=== PATIENT | male | born 1955 | race Caucasian/White ===

== ENCOUNTER 2025-05-25 08:55 | Outpatient (OUT) | payer MEDICARE, SELFPAY ==
--- OUTSIDE RECORDS SUMMARY | 2025-04-16 05:15 | XMS_ITS ---
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 Name Role Phone Rekha Naila Primary Care Provider [phone] Karie Willoughby Unavailable [phone] REASON FOR VISIT f/u Social History Sex Assigned At : Social History Observation Description Sex Assigned At Male Encounters Encounter Location Date Provider Diagnosis Main [address] [facility] [place] [id number] 04/16/2025 Naila Da Silva Plan Of Treatment Next Appt Details Provider Name:Naila Da Silva , 06/23/2025 08:15:00 AM, [address] [place], [place], [id number], Progress Notes * Bhavin PULLIAM HDOB:[birth year] (70 yo M)Acc No.[id number]:04/16/2025 Medical Note Patient: Teresa MIN Bhavin Weinberg :?Naila Da SilvaDOB:1955???Age:69 Y???Sex: MaleDate:04/16/2025Phone:[phone]:[facility] [place], [id number] Subjective: * Chief Complaints: * 1 . F/u. * Medical History: Objective: * Vitals: Assessment: Plan: * Treatment: * Billing Information: * Visit Code: * Procedure Codes: * Electronic signature of EVANS Lama on 05/25/2025 at 09:04 AM ESTSign off status: Pending * Provider: Luis Daniel Da Silva Date: Generated for Printing/Faxing/eTransmitting on:?05/25/2025 09:04 AM EST
--- OUTSIDE RECORDS SUMMARY | 2025-04-22 05:30 | XMS_ITS ---
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 Role Phone Rekha Naila Primary Care Provider Karie Willoughby Unavailable [phone] REASON FOR VISIT DM2 & HTN Social History Sex Assigned At : Social History Observation Description Sex Assigned At Male Encounters Encounter Location Date Provider Diagnosis Main [address] [place] [id number] 04/22/2025 Naila Rekha Plan Of Treatment Next Appt Details Provider Name:Naila Rekha , 06/23/2025 08:15:00 AM, [address] [place], [place], [id number], Progress Notes * Bhavin PULLIAM HDOB:[birth year] (70 yo M)Acc No.[id number]:04/22/2025 Medical Note Patient: Teresa MIN Bhavin Weinberg :?Naila Da SilvaDOB:1955???Age:69 Y???Sex: MaleDate:04/22/2025Phone:[phone]:[address] [facility] [id number] Subjective: * Chief Complaints: * 1 . DM2 & HTN. * Medical History: Objective: * Vitals: Assessment: Plan: * Treatment: * Billing Information: * Visit Code: * Procedure Codes: * Electronic signature of EVANS Lama on 05/25/2025 at 09:04 AM ESTSign off status: Pending * Provider: Luis Daniel Da Silva Date: Generated for Printing/Faxing/eTransmitting on:?05/25/2025 09:04 AM EST
--- OUTSIDE RECORDS SUMMARY | 2025-05-24 03:00 | XMS_ITS ---
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 Name Role Phone Naila Da Silva Primary Care Provider Karie Willoughby Unavailable [phone] Allergies No Known Allergies Results Component Value Reference Range Notes POCT A1C Reviewed date:05/24/2025 08:17:46 AM Interpretation: Performing Lab: Notes/Report: Result 8.6 0-5.6 % REASON FOR VISIT DM2/ HTN Medications Medication SIG (Take, Route, Frequency, Duration) Notes Start Date End Date Status glipiZIDE 10 MG 1 tablet 30 minutes before breakfast Orally Once a day; Duration: 90 days [id number] Choice Lancets Thin -as directed twice daily; Duration: 30 days 07/20/2024Not-TakingBlood Glucose Test -as directed In Vitro twice daily; Duration: 30 days07/20/2024Not-TakingAlcohol Wipes 70 %as directed Externally twice daily; Duration: 30 days07/20/2024Not-TakingGlucometerUse as directed; Duration: 30 days07/20/2024Not-TakingHumaLOG KwikPen 100 UNIT/MLInject 5U Subcutaneous three times daily with meals; Duration: 30 days5ActiveEasy Touch Pen Vallecito 32G X 6 MMUse to inject insulin 5 times daily; Duration: 90 days5ActiveLantus SoloStar 100 UNIT/MLInject 35U in the morning and evening Subcutaneous Twice a day; Duration: 30 daysDOSE INCREASE 04/21/25Active Diclofenac Sodium 75 MG1 tablet as needed Orally Twice a day; Duration: 30 days [id number] Choice Lancets Thin -Use to check blood sugars twice daily; Duration: 90 daysPLS USE WHAT BRANMD IS COVERED BY PT INS5ActiveBlood Glucose Test -Use to check blood sugars In Vitro twice daily; Duration: 90 days PLS USE WHAT IS COVERED BY PT INS5ActiveGlucometerUse to check blood sugars twice daily; Duration: 90 daysPLS USE WHAT IS COVERED BY INS04/18/2025 ActiveAlcohol Wipes 70 %Use to check blood sugars Externally twice daily; Duration: 90 days5ActivetraZODone HCl 150 MG1 tablet at bedtime as needed Orally Once a day; Duration: 30 days02/24/2025tiveMetoprolol Succinate ER 25 MGTAKE 1 TABLET BY MOUTH ONCE DAILYActiveDexcom G7 Bend Up -Use to check blood sugars; Duration: 90 days5ActiveAtorvastatin Calcium 40 MG1 tablet Orally Once a day; Duration: 90 daysActiveCyclobenzaprine HCl 10 MG1 tablet at bedtime as needed Orally Once a day; Duration: 30 days5Active Aspirin 81 81 MG1 tablet Orally Once a dayActiveGabapentin 600 MG1 tablet Orally Twice daily; Duration: 90 daysActiveDexcom G7 Sensor -Use to check blood sugars and change every 10 days; Duration: 90 days5Active Social History Sex Assigned At : Social History Observation Description Sex Assigned At Male Problems Problem Type SNOMED Code ICD Code Onset Dates Problem Status W/U Status Risk Notes Problem Uncontrolled type 2 diabetes mellitus with hypoglycemia without coma (E11.649) ActiveconfirmedProblemLong-term current use of insulin ([id number])Long-term insulin use (Z79.4)Activeconfirmed Vital Signs Temperature 97.7 degrees Fahrenheit 05/24/20 25 Weight 124 lbs 05/24/2025 Height 67.00 in 05/24/2025 BMI 19.42 kg/m2 05/24/2025 Blood pressure systolic 157 mm Hg 05/24/20 25 Blood pressure diastolic 100 mm Hg 025 Heart Rate 60 /min 05/24/2025 Respiratory Rate 18 /min 05/24/2025 Oximetry 98 % 05/24/2025 Weight-kg 56.25 kg 05/24/2025 Height-cm 170.18 cm 05/24/2025 KimNeilo 025 08:02:43 AM EST > Encounters Encounter Location Date Provider Diagnosis Main [address] , [place] [id number] [facility] ([facility] I 10 ; Uncontrolled type 2 diabetes mellitus with hypoglycemia without coma E11.649 ; DG (acute kidney injury) N17.9 ; Long-term insulin use Z79.4 ; BMI less than 19,adult Z68.1 and Underweight R63.6 Assessments Encounter Date Diagnosis (ICD Code) Assessment Notes Treatment Notes Treatment Clinical Notes Section Notes 05/24/2025 HTN (hypertension) (ICD-10 - I10 ) Pt continues to have elevated BP's in office and home. Pt denies symptoms at this time. Pt encouraged to check BP's twice daily at rest; once in the morning upon waking and once before bed. Pt provided w/ a BP log to keep track of BP's at home. Encouraged healthy diet and exercise. Discussed reassuring vs non reassuring signs related to elevated BP and when to RTC or go to the ER. Pt declines medication change at this time, has not taken his meds today 05/24/2025Uncontrolled type 2 diabetes mellitus with hypoglycemia without coma (ICD-10 - E11.649) A1C elevated above goal, much improved since last visit Pt denies symptoms at this time. Strongly encouraging healthy diet and exercise, if able- lower in carbohydrates and sugars, prioritizing protein, fruits, and vegetables. Recommendations made to continue monitoring home blood sugars, keep a log checking 3x daily; Fasted, and twice 2 hours post-prandial. Continue current medications, refills sent Sent RX for Dexcom d/t pt's Hypoglycemic episodes and insulin use F/U 1 month or PRN 05/24/2025KI (acute kidney injury) (ICD-10 - N17.9)Continue following w/ Nwhzxqdzev54/10/2025Long-term insulin use (ICD-10 - Z79.4)05/24/2025MI less than 19,adult (ICD-10 - Z68.1)05/24/2025Underweight (ICD-10 - R63.6) Plan Of Treatment Medication Medication Name Sig Start Date Stop Date Notes glipiZIDE 10 MG 1 tablet 30 minutes before breakfast Orally Once a day; Duration: 90 days HumaLOG KwikPen 100 UNIT/MLInject 5U Subcutaneous three times daily with meals; Duration: 30 days04/21/2025Easy Touch Pen Vallecito 32G X 6 MMUse to inject insulin 5 times daily; Duration: 90 days10/19/2024Lantus SoloStar 100 UNIT/ML Inject 35U in the morning and evening Subcutaneous Twice a day; Duration: 30 daysDOSE INCREASE 04/21/25Dexcom G7 Bend Up -Use to check blood sugars; Duration: 90 days05/24/2025Dexcom G7 Sensor -Use to check blood sugars and change every 10 days; Duration: 90 days05/24/2025Treatment Notes Assessment Notes HTN (hypertension) Pt continues to have elevated BP's in office and home. Pt denies symptoms at this time. Pt encouraged to check BP's twice daily at rest; once in the morning upon waking and once before bed. Pt provided w/ a BP log to keep track of BP's at home. Encouraged healthy diet and exercise. Discussed reassuring vs non reassuring signs related to elevated BP and when to RTC or go to the ER. Pt declines medication change at this time, has not taken his meds today Uncontrolled type 2 diabetes mellitus with hypoglycemia without coma A1C elevated above goal, much improved since last visit Pt denies symptoms at this time. Strongly encouraging healthy diet and exercise, if able- lower in carbohydrates and sugars, prioritizing protein, fruits, and vegetables. Recommendations made to continue monitoring home blood sugars, keep a log checking 3x daily; Fasted, and twice 2 hours post-prandial. Continue current medications, refills sent Sent RX for Dexcom d/t pt's Hypoglycemic episodes and insulin use F/U 1 month or PRN DG (acute kidney injury) Continue vinh cardona w/ Nephrology Next Appt Details Follow Up: 1 month DM2 & DG , Reason: Provider Name:Naila Da Silva , 06/23/2025 08:15:00 AM, [address] [place], [place], [id number], Progress Notes * Bhavin PULLIAM HDOB:[birth year] (70 yo M)Acc No.[id number]:05/24/2025 Medical Note Patient: Bhavin BARRIGA :?Naila BanksB:1955???Age:70 Y???Sex: MaleDate:05/24/2025Phone:[phone]:[address]Check In:07:49 AM EST Subjective: * Chief Complaints: * D M2/ HTN * HPI: ???Interim History:?DIABETES Last HgA1C: 13.0% (04/21/25), 15% (01/19/25, 10/19/24, 07/20/24) Today's HgA1C: 8.6% Medication: Glipizide 10mg 1QD, Humalog KwikPen 5U TID, Lantus Solostar 35U BID Last visit increased Lantus from 25U to 35U BID, New RX for Humalog TID w/ meals 5U? Pt reports his diet has been about the same, he eats what he wants? Pt reports his neighbors upstairs at his apartment home are so disruptive, he feels that they causehis sugars to be too low Pt reports his sugars have been dropping in thr 40's after checking and this worries him He will be moving out of his apartment in June? HYPERTENSION Medication: Metoprolol ER 25mg 1QD Stopped Losartan-HCTZ last visit d/t recent DG Pt has been having higher BP's at home, has not taken his medications this morning RECENT DG Follows w/ [facility], last appt 04/15/25. * ROS: ???Negative except mentioned above in the HPI. * Medical History: * Surgical History: C abbage 5, : Inpatient, * Hospitalization/Major Diagno stic Procedure: D enies Past Hospitalization * Family History: F ather: . M other: . P aternal Grand Father: . P aternal Grand Mother: . M aternal Grand Father: . M aternal Grand Mother: .? * Medications: T akingLantus SoloStar 100 UNIT/ML Solution Pen-injector Inject 35U in the morning and evening Subcutaneous Twice a day , Notes to Pharmacist: DOSE INCREASE 04/21/25Easy Touch Pen Vallecito 32G X 6 MM Miscellaneous Use to inject insulin 5 times daily HumaLOG KwikPen 100 UNIT/ML Solution Pen-injector Inject 5U Subcutaneous three times daily with meals Aspirin 81 81 MG Tablet Delayed Release 1 tablet Orally Once a day Gabapentin 600 MG Tablet 1 tablet Orally Twice daily glipiZIDE 10 MG Tablet 1 tablet 30 minutes before breakfast Orally Once a day Cyclobenzaprine HCl 10 MG Tablet 1 tablet at bedtime as needed Orally Once a day Atorvastatin Calcium 40 MG Tablet 1 tablet Orally Once a day Metoprolol Succinate ER 25 MG Tablet Extended Release 24 Hour TAKE 1 TABLET BY MOUTH ONCE DAILY traZODone HCl 150 MG Tablet 1 tablet at bedtime as needed Orally Once a day Glucometer Use to check blood sugars twice daily , Notes to Pharmacist: PLS USE WHAT IS COVERED BY INSBlood Glucose Test - Strip Use to check blood sugars In Vitro twice daily , Notes to Pharmacist: PLS USE WHAT IS COVERED BY PT INSAlcohol Wipes 70 % Miscellaneous Use to check blood sugars Externally twice daily 1st Choice Lancets Thin - Miscellaneous Use to check blood sugars twice daily , Notes to Pharmacist: PLS USE WHAT BRANMD IS COVERED BY PT INSDiclofenac Sodium 75 MG Tablet Delayed Release 1 tablet as needed Orally Twice a day Taking Lantus SoloStar 100 UNIT/ML Solution Pen-injector Inject 35U in the morning and evening Subcutaneous Twice a day , Notes to Pharmacist: DOSE INCREASE 04/21/25Taking Easy Touch Pen Vallecito 32G X 6 MM Miscellaneous Use to inject insulin 5 times daily Taking HumaLOG KwikPen 100 UNIT/ML Solution Pen-injector Inject 5U Subcutaneous three times daily with meals Taking Aspirin 81 81 MG Tablet Delayed Release 1 tablet Orally Once a day Taking Gabapentin 600 MG Tablet 1 tablet Orally Twice daily Taking glipiZIDE 10 MG Tablet 1 tablet 30 minutes before breakfast Orally Once a day Taking Cyclobenzaprine HCl 10 MG Tablet 1 tablet at bedtime as needed Orally Once a day Taking Atorvastatin Calcium 40 MG Tablet 1 tablet Orally Once a day Taking Metoprolol Succinate ER 25 MG Tablet Extended Release 24 Hour TAKE 1 TABLET BY MOUTH ONCE DAILY Taking traZODone HCl 150 MG Tablet 1 tablet at bedtime as needed Orally Once a day Taking Glucometer Use to check blood sugars twice daily , Notes to Pharmacist: PLS USE WHAT IS COVERED BY INSTaking Blood Glucose Test - Strip Use to check blood sugars In Vitro twice daily , Notes to Pharmacist: PLS USE WHAT IS COVERED BY PT INSTaking Alcohol Wipes 70 % Miscellaneous Use to check blood sugars Externally twice daily Taking 1st Choice Lancets Thin - Miscellaneous Use to check blood sugars twice daily , Notes to Pharmacist: PLS USE WHAT BRANMD IS COVERED BY PT INSTaking Diclofenac Sodium 75 MG Tablet Delayed Release 1 tablet as needed Orally Twice a day Not-Taking/PRNGlucometer Use as directed Alcohol Wipes 70 % Miscellaneous as directed Externally twice daily Blood Glucose Test - Strip as directed In Vitro twice daily 1st Choice Lancets Thin - Miscellaneous as directed twice daily Medication List reviewed and reconciled with the patientNot-Taking/PRN Glucometer Use as directed Not-Taking/PRN Alcohol Wipes 70 % Miscellaneous as directed Externally twice daily Not-Taking/PRN Blood Glucose Test - Strip as directed In Vitro twice daily Not-Taking/PRN 1st Choice Lancets Thin - Miscellaneous as directed twice daily Medication List reviewed and reconciled with the patient * Allergies: N .K.D.A.no[Allergies Verified] Objective: * Vitals: T emp:97.7F, Wt:124lbs, Ht: 67.00 in, BMI:19.42Index, BP: 165/107 mm Hg,157/100mm Hg, HR:60/min, RR:18/min, Pain scale:31-10, Oxygen sat %:98%, Wt-k.25 kg, Ht- cm: 170.18 cm, Body Surface Area: 1.63. Kofi Kim 05/24/2025 08:02:43 AM EST >. * Examination: ???General Examination: ?General appearance:?alert, pleasant, well-nourished and inno acute distress.?Head:?normocephalic, atraumatic.?Heart:?regular rate and rhythm without murmurs, gallops, clicks or rubs.?Lungs:?clear to auscultation bilaterally, with good air movement and no rales, rhonchi or wheezes.?Psych:?alert and oriented x 3 , cooperative with exam, normal affect / mood , speech is clear and coherent.?CQM Exceptions: ?Currently taking Aspirin:?Aspirin Use:?No??? Assessment: * Assessment: 1.?Uncontrolled type 2 diabetes mellitus with hypoglycemia without coma - E11.649 (Primary) ??2.?HTN (hypertension) - I10???3.?DG (acute kidney injury) -N17.9???4.?Long-term insulin use - Z79.4???5.?BMI less than19,adult - Z68.1???6.?Underweight - R63.6??? Plan: * Treatment: Start Dexcom G7 Sensor Miscellaneous, -, Use to check blood sugars and change every 10 days, 90 days, 9, Refills 1;?Start Dexcom G7 Bend Up Device, -, Use to check blood sugars, 90 days, 1, Refills 0;?Refill Lantus SoloStar Solution Pen- injector, 100 UNIT/ML, Inject 35U in the morning and evening, Subcutaneous, Twice a day, 30 days, 21 Milliliter, Refills 2, Notes to Pharmacist: DOSE INCREASE 04/21/25;?Refill Easy Touch Pen Vallecito Miscellaneous, 32G X 6 MM, Use to inject insulin 5 times daily, 90 days, 500, Refills 3;?Refill HumaLOG KwikPen Solution Pen-injector, 100 UNIT/ML, Inject 5U, Subcutaneous, three times daily with meals, 30 days, 6 Milliliter, Refills 2;?Refill glipiZIDE Tablet, 10 MG, 1 tablet 30 minutes before breakfast, Orally, Once a day, 90 days, 90, Refills 1.?LAB: POCT A1C (Collection Date & Time - 05/24/2025 08:06 AM)* ?ValueReference Range?Result8.6HH0-5.6 - % Notes: A1C elevated above goal, much improved since last visit Pt denies symptoms at this time. Strongly encouraging healthy diet and exercise, if able- lower in carbohydrates and sugars, prioritizing protein, fruits, and vegetables. Recommendations made to continue monitoring home blood sugars, keep a log checking 3x daily; Fasted, and twice 2 hours post-prandial. Continue current medications, refills sent Sent RX for Dexcom d/t pt's Hypoglycemic episodes and insulin use F/U 1 month or PRN??2.?HTN (hypertension)? Notes: Pt continues to have elevated BP's in office and home. Pt denies symptoms at this time. Pt encouraged to check BP's twice daily at rest; once in the morning upon waking and once before bed. Pt provided w/ a BP log to keep track of BP's at home. Encouraged healthy diet and exercise. Discussed reassuring vs non reassuring signs related to elevated BP and when to RTC or go to the ER. Pt declines medication change at this time, has not taken his meds today??3.?DG (acute kidney injury)? Notes: Continue following w/ Nephrology?? * Procedure Codes: 8 3036 GLYCATED HEMOGLOBIN TEST, Modifiers: QW 3077F HTN SYST BP >= 3730459D HTN DIAST BP >= 680497I DM HG A1C = 8-9 * Preventive Medicine: ??Counseling:?Communication to patient:?Counseling for nutrition provided?Yes ?Counseling for physical activity provided?Yes * Follow Up: 1 month DM2 & DG * Billing Information: * Visit Code: 73245 Office Visit Est 30-39 minutes. * Procedure Codes: 86415 GLYCATED HEMOGLOBIN TEST. Modifiers: QW 3077F HTN SYST BP >= 140. 3080F HTN DIAST BP >= 90. 3052F DM HG A1C = 8-9. * Sign off status: Completed true * Provider: Luis Daniel Da Silva Date: 07/24/2024 Generated for Printing/Faxing/eTransmitting on:?05/25/2025 09:05 AM EST History and Physical Notes * HPI (History of Present Illness) CategorySub-CategoryDetailNotesCategory NotesInterim History DIABETES Last HgA1C: 13.0% (04/21/25), 15% (01/19/25, 10/19/24, 07/20/24) Today's HgA1C: 8.6% Medication: Glipizide 10mg 1QD, Humalog KwikPen 5U TID, Lantus Solostar 35U BID Last visit increased Lantus from 25U to 35U BID, New RX for Humalog TID w/ meals 5U Pt reports his diet has been about the same, he eats what he wants Pt reports his neighbors upstairs at his apartment home are so disruptive, he feels that they causehis sugars to be too low Pt reports his sugars have been dropping in thr 40's after checking and this worries him He will be moving out of his apartment in June HYPERTENSION Medication: Metoprolol ER 25mg 1QD Stopped Losartan-HCTZ last visit d/t recent DG Pt has been having higher BP's at home, has not taken his medications this morning RECENT DG Follows w/ [facility], last appt 04/15/25 Examination CategorySub-CategoryDetailNotesCategory NotesGeneral ExaminationGeneral appearance:alert, pleasant, well-nourished and in no acute distressHead: normocephalic, atraumaticHeart:regular rate and rhythm without murmurs, gallops, clicks or rubsLungs:clear to auscultation bilaterally, with good air movement and no rales, rhonchi or wheezesPsych:alert and oriented x 3 , cooperative with exam, normal affect / mood , speech is clear and coherentCQM ExceptionsCurrently taking Aspirin:Aspirin Use:: No
--- OUTSIDE RECORDS SUMMARY | 2025-05-24 23:59 | XMS_ITS | Continuity of Care Document ---
Author Organization [facility] Address [address] [place] [address] Care Team Providers Care Pourer Off Name Role Phone SOPHIE VIRAMONTES Primary Care Physician [phone] Encounter FT_CLEMENT [id number] Date(s): 05/24/25 - 05/24/25 [facility] [address] [place] [address]- [place] Discharge Disposition: Home (Routine DC) Attending Physician: Armando WHITE MD Encounter Type: Clinic Allergies, Adverse Reactions, Alerts No Known Allergies Treatment Plan Future Appointments Appointment Date:06/08/2025 09:00:00 AM Scheduled Provider: Location:[facility] Appointment Type:URO Nurse Visit Appointment Date:06/21/2025 01:30:00 PM Scheduled Provider:Armando WHITE MD Location:[facility] Appointment Type:URO Office Visit Medications atorvastatin 40 mg Tab 40 mg = 1 tab(s), Oral, Daily, # 30 tab(s), Refills(s) 0 Start Date: 04/15/25 Status: Ordered Medication Dispense Status: Completed Quantity: 30.0 Unit: tab(s) Total Allowed Fills: 1 Fills Dispensed: 0 Cipro 500 mg Tab 500 mg = 1 tab(s), Oral, Daily, Take 1 tablet the day before the procedure and 1 tablet after the procedure, # 2 tab(s), Refills(s) 0, Pharmacy: [facility], 170, cm, 04/15/25 8:36:00 EDT, Height/Length Dosing, 53.6, kg, 04/15/25 8:36:00 EDT, Weight Dosing Start Date: 04/20/25 Status: Ordered Medication Dispense Status: Completed Quantity: 2.0 Unit: tab(s) Total Allowed Fills: 1 Fills Dispensed: 0 cyclobenzaprine 10 mg Tab TAKE 1 TABLET BY MOUTH ONCE DAILY AT BEDTIME NEEDED Start Date: 04/15/25 Status: Ordered Medication Dispense Status: Completed Total Allowed Fills: 1 Fills Dispensed: 0 diclofenac sodium 75 mg Oral EC Tab TAKE 1 TABLET BY MOUTH TWICE DAILY NEEDED Start Date: 04/15/25 Status: Ordered Medication Dispense Status: Completed Total Allowed Fills: 1 Fills Dispensed: 0 gabapentin 600 mg Tab 600 mg = 1 tab(s), Oral, TID, # 270 tab(s), Refills(s) 0 Start Date: 04/15/25 Status: Ordered Medication Dispense Status: Completed Quantity: 270.0 Unit: tab(s) Total Allowed Fills: 1 Fills Dispensed: 0 glipiZIDE 10 mg Tab 10 mg = 1 tab(s), Oral, Daily, # 30 tab(s), Refills(s) 0 Start Date: 04/15/25 Status: Ordered Medication Dispense Status: Completed Quantity: 30.0 Unit: tab(s) Total Allowed Fills: 1 Fills Dispensed: 0 hydrochlorothiazide-losartan 12.5 mg-50 mg Tab TAKE 1 TABLET BY MOUTH ONCE DAILY Start Date: 04/15/25 Status: Ordered Medication Dispense Status: Completed Total Allowed Fills: 1 Fills Dispensed: 0 Lantus Solostar Pen 100 units/mL subcutaneous solution INJECT 25 UNITS SUBCUTANEOUSLY EVERY MORNING AND EVERY EVENING Start Date: 04/15/25 Status: Ordered Medication Dispense Status: Completed Total Allowed Fills: 1 Fills Dispensed: 0 meloxicam 7.5 mg Tab TAKE 1 TABLET BY MOUTH TWICE DAILY Start Date: 04/15/25 Status: Ordered Medication Dispense Status: Completed Total Allowed Fills: 1 Fills Dispensed: 0 metformin 500 mg Tab Refills(s) 0 Start Date: 04/15/25 Status: Ordered Medication Dispense Status: Completed Total Allowed Fills: 1 Fills Dispensed: 0 metoprolol succinate 25 mg ER Tab 25 mg = 1 tab(s), Oral, Daily, # 30 tab(s), Refills(s) 0 Start Date: 04/15/25 Status: Ordered Medication Dispense Status: Completed Quantity: 30.0 Unit: tab(s) Total Allowed Fills: 1 Fills Dispensed: 0 tamsulosin 0.4 mg Cap 0.4 mg = 1 cap(s), Oral, BID, Decrease to once a day if experiencing dizziness or lightheadedness.,X 30 day(s), # 60 cap(s), Refills(s) 11, Pharmacy: [facility], 170, cm, 04/26/25 8:24:00 EDT, Height/Length Dosing, 53.6, kg, 04/26/25 8:24:00 EDT, Weight Dosing Start Date: 04/26/25 Stop Date: 04/21/26 Status: Ordered Medication Dispense Status: Completed Quantity: 60.0 Unit: cap(s) Total Allowed Fills: 12 Fills Dispensed: 0 traZODONE 150 mg Tab TAKE 1 TABLET BY MOUTH ONCE DAILY AT BEDTIME NEEDED Start Date: 04/15/25 Status: Ordered Medication Dispense Status: Completed Total Allowed Fills: 1 Fills Dispensed: 0 Problem List ConditionConfirmationCourseEffective DatesStatusHealth StatusInformantAcute renal failureConfirmedActiveAntineutrophil cytoplasmic antibody positive vasculitisConfirmedActiveBPH with urinary obstructionConfirmedActiveCoronary artery diseaseConfirmedActiveDiabetesConfirmedActiveFeeling of incomplete bladder emptyingConfirmedActiveHyperlipidemiaConfirmedActiveHypertension ConfirmedActiveWeak urine streamConfirmedActiveElevated PSAConfirmedActive Urinary retentionConfirmedActive Procedures ProcedureDateRelated DiagnosisBody SiteStatusFlexible [id number]/13/25 CompletedCABG >5 - Coronary artery bypass grafts greater than fiveCompleted Fiberoptic colonoscopy with biopsy of lesion of colonCompleted Social History Social History TypeResponseSmoking StatusFormer smoker, quit more than 30 days ago;Never; Type: Cigarettes entered on: 04/26/25Birth SexMaleSex RepresentationMale (finding) Patient Care team information Care Team Personnel Name: SOPHIE VIRAMONTES Member Role: Primary Care Physician Address: [address] [place] [phone] Telecom: Care Team Related Persons Name: CHRISTINE BURGOS Insurance Providers Guarantor name: Health Plan Information #: 1 Payer: [facility] Payer Identifier: [id number] Member Number: [id number] Group Number: [id number] Subscriber Identifier: [id number] Relationship to Subscriber: self Coverage Type: MEDICARE Coverage Verification Date: GRICELDA Telecom: GRICELDA Address: [facility] [address] [place] [address]
--- OUTSIDE RECORDS SUMMARY | 2025-05-25 09:05 | XMS_ITS | Clinical Summary ---
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 90 tablet ctive metoprolol succinate XL (TOPROL XL) 25 mg 24 hr tablet Indications:ASCVD (arteriosclerotic cardiovascular disease)take 1 tablet by mouth IN THE MORNING 90 tablet ctive gabapentin (NEURONTIN) 300 mg capsule Indications:Neuropathytake 1 capsule by mouth four times a day (MORNING,NOON, EVENING, BEFORE BEDTIME) 120 capsule ctive Additional Information Patient taking differently: 300 mg oral 4 times daily, Morning, Noon, Evening, Bedtime, Informant: Self, Reported on 04/06/2025 pen needle, diabetic (DROPLET PEN NEEDLE) 32 gauge x 1/4 needle use 1 NEEDLE to inject MEDICATION subcutaneously once daily 100 each ctive aspirin 81 mg Indications:ASCVD (arteriosclerotic cardiovascular disease)take 1 tablet by mouth every morning 90 tablet ctive insulin glargine,hum.rec.anlog (TOUJEO SOLOSTAR U-300 INSULIN SUBQ) Inject 25 Units under the skin in the morning and 25 Units before bedtime.Active glipiZIDE (GLUCOTROL) 10 mg tablet Take 1 tablet (10 mg total) by mouth in the morning.5Active traZODone (DESYREL) 150 mg tablet Take 150 mg by mouth nightly.5Active tamsulosin (FLOMAX) 0.4 mg capsule Take 1 capsule (0.4 mg total) by mouth nightly for 30 days. 30 capsule 51Expired Active Problems ProblemNoted DateDiagnosed DateSevere protein-calorie /24/2025 Acute renal wswunix3104/06/2025Renal lmwbybvavdkax60/22/2024hest pain, unspecified type12/03/2023Urologic fzkduiif90/22/2023 Overview (12/03/2022): ==== 12/03/2022 ==== PSA 1.55 rectal exam benign. Creatinine is good at 1.17 as well. Right upper quadrant abdominal pain09/13/2022Type 2 diabetes mellitus with hyperglycemia, with long-term current use of rsnfdyv2409/13/2022Renal cyst, acquired, left09/13/2022 Overview (12/03/2022): ==== 12/03/2022 ==== incidental finding of cyst left kidney. Almost certainly benign based on its characteristics. Slightly larger over time. Certainly not that worrisome. It is pretty small to begin with anyway. Plan: Ultrasound 9 months return clinic Acute pancreatitis, unspecified complication status, unspecified pancreatitis type3Pancreatitis, acute08/21/2022Flu-like erhobzim92/16/2023Food jrmxblsgu63/26/2022Chronic pain of both knees04/25/2022History of tobacco abuse 04/25/2022ipolar 1 mnvldyli96/19/2022Left foot pain2020Atypical chest pain03/30/2020Reactive htddygwkvm31/16/2020ASCVD (arteriosclerotic cardiovascular disease)11/19/2019Microalbuminuria due to type 2 diabetes oapmjqfx42/15/2020Screening PSA (prostate specific antigen)10/15/2019History of open heart bsigaae3310/15/2019Elevated cholesterol with elevated triglycerides 10/15/2019Essential rdemgwqftdsl53/31/2020Vitamin D aevdhwbpwv10/31/2020Ventral hernia, kvyulwbae60/31/2020CAD in [place] jhzspr0010/13/2019Insomnia, persistent 10/13/2019 Resolved Problems ProblemNoted DateDiagnosed DateResolved DateOther sprain of left thumb, initial yqkzjrupm04/05/2022Infected icxlwl22Encounter for incision and drainage oxazxyclh48cute pain of both shoulders Intermittent tingling sensation of left hand and foot Intermittent tingling sensation of right hand and foot ncounter for screening wagwqelxgoe50 Hyperlipidemia associated with type 2 diabetes snmvyavo97 Encounters DateTypeDepartmentCare HmfaSxgevhiqugy23/07/2025Results Follow-Up N [facility] [address] [place] [phone] Emeterio Bush MD Myeloperoxidase 04/20/2025Documentation [facility] [address] [place] [address] Cuco Patricio MD 04/19/2025Documentation [facility] [address] [place] [address] Alysia Flores, ROXANA-BALLISTICS TEACHER 04/19/2025Telephone [facility] [address] [place] [address] Ottoniel Miller Urgcgst6404/19/20252312Dijwht17/29/2025Telephone [facility] [address] [place] [phone] Annika Thompson LPN 04/12/2025Telephone [facility] [address] [place] [address] Annika Thompson LPN 04/09/2025Telephone [facility] [address] [place] [address] [place] [address] Milton Oleary MD 04/09/2025Telephone [facility] [address] [place] [address] Emeterio Bush MD post hosp04/06/2025 4:17 AM EDT - 04/07/2025 5:40 PM EDTHospital Encounter [facility] - Med-Surg[facility]Ortho [address] [place] [phone] Cuco Patricio MD Kommoori, Sneha L, MD Renal insufficiency (Primary Dx); Acute renal failure, unspecified acute renal failure type Discharge Disposition: Home04/06/20250078Vstcrd22/22/2025 4:41 PM EDT - 04/06/2025 3:[facility] [address] [place] [address] Regino Martinez DO Acute renal failure, unspecified acute renal failure type (Primary Dx) Discharge Disposition: [facility] Somxkcjo86/22/8888Niuaci86/22/2025Telephone [facility] [address] [place] [address] External, Scanning Provider 04/05/2025Telephone [facility] [address] [place] [address] Emeterio Bush MD 04/01/2025 12:46 PM EDT - 04/01/2025 4:40 [facility] [address] [place] [address] Gregory Simmons MD Fall, initial encounter (Primary Dx); Acute kidney injury; Dehydration Discharge Disposition: Left Against Medical Advice or Discontinued Care 04/01/2025Travelfrom Last 3 Months Immunizations ImmunizationAdministration DatesNext DueInfluenza (IM) Preservative Free 04/08/2016,02/23/2015Influenza, Injectable, Mdck, Preservative Free, Quad 04/19/2020Influenza, Injectable, quadrivalent (PF)03/24/2022,03/28/2021, 02/19/2019,06/12/2018,02/24/2018,02/20/2017Pneumococcal Conjugate 13-Valent 06/20/2020Zoster Vaccine Dwyeracrxeu38/26/2019,02/24/2018 Family History Medical HistoryRelationNameCommentsNo Known ProblemsFatherNo Known Problems MotherRelationNameStatusCommentsFatherDeceasedMotherAlive Social History Tobacco UseTypesPacks/DayYears UsedDateSmoking Tobacco: FormerCigarettes1.546.8 07/15/1965 - 04/23/2012Smokeless Tobacco: Never Tobacco Cessation:Counseling Given: Not Answered Alcohol UseStandard Drinks/WeekCommentsNo0 (1 standard drink = 0.6 oz pure alcohol)[facility] UtilitiesAnswerDate RecordedIn the past 12 months has the [employer], gas, oil, or water [employer] [place] threatened to shut off services in your home?No 04/06/2025Social Connection and Isolation PanelAnswerDate RecordedIn a typical week, how many times do you talk on the phone with family, friends, or neighbors?Once a week12/03/2023How often do you get together with friends or relatives?Once a week12/03/2023How often do you attend taoism or confucianism services?Never4Do you belong to any clubs or organizations such as taoism groups, unions, fraternal or athletic groups, or school groups?No 12/03/2023How often do you attend meetings of the clubs or organizations you belong to?Never4Are you , , , , never , or living with a partner?Osojotv2112/03/2023UDIT-CAnswerDate RecordedQ1: How often do you have a drink containing alcohol?Never12/03/2023Q2: How many drinks containing alcohol do you have on a typical day when you are drinking? Patient does not drink12/03/2023Q3: How often do you have six or more drinks on one occasion?Never12/03/2023Overall Financial Resource Strain (CARDIA)AnswerDate RecordedHow hard is it for you to pay for the very basics like food, housing, medical care, and heating?Not hard at all04/06/2025PHQ-2AnswerDate RecordedTotal Gabkx469[facility] of Occupational Health - Occupational Stress QuestionnaireAnswerDate RecordedDo you feel stress - tense, restless, nervous, or anxious, or unable to sleep at night because yourmind is troubled all the time - these days?Not at all12/03/2023Exercise Vital SignAnswerDate RecordedOn average, how many days per week do you engage in moderate to strenuous exercise (like a brisk walk)?5 days12/03/2023On average, how many minutes do you engage in exercise at this level?10 min12/03/2023RAPARE - TransportationAnswerDate RecordedIn the past 12 months, has lack of transportation kept you from medical appointments or from getting medications?No04/06/2025In the past 12 months, has lack of transportation kept you from meetings, work, or from getting things needed for daily living?04/06/2025Housing InstabilityAnswerDate RecordedAre you worried or concerned that in the next two months you may not have stable housing that you own, rent or stay in as a part of a household?04/06/2025 ChildcareAnswerDate RecordedDo problems getting child welfare assistant make it difficult for you to work or study?No12/03/2023EmploymentAnswerDate RecordedDo you need help finding a local career center and/or a training program?12/03/2023Hunger ScreeningAnswerDate RecordedWithin the past 12 months we worried whether our food would run out before we got money to buy more.Never True04/06/2025Within the past 12 months the food we bought just didn't last and we didn't have money to get more.Never True04/06/2025Purpose - LifeAnswerDate RecordedI have a purpose and direction in my life.Agree12/03/2023Sex and Gender InformationValue Date RecordedSex Assigned at BirthNot on fileLegal JaoTuir9602/17/2015 12:03 PM EDTGender IdentityNot on fileSexual OrientationNot on file Last Filed Vital Signs Vital SignReadingTime TakenCommentsBlood Fiwxkfvo649/7609 1:02 PM EDT Iaoox7465 1:02 PM NMFXwjupbdnits94.6 ??C (97.9 ??F)04/07/2025 1:02 PM EDTRespiratory Iuwt554104/07/2025 1:02 PM EDTOxygen Dvheohkeko854%04/07/2025 1:02 PM EDTInhaled Oxygen Concentration--Vhrwzq85.3 kg (117 lb 8.1 oz)04/07/2025 3:00 AM KMWYkgpft684.2 cm (5' 7 )04/06/2025 4:32 AM EDTBody Mass Index18.409 4:32 AM EDT Plan of Treatment DateTypeDepartmentCare Team (Latest Contact Info)Caqvrpmfvxt02/15/2026 1:30 PM ESTOffice Visit PHN [facility] [address] [place] [address] Alex Tolliver MD [address] [place] [address] Health MaintenanceDue DateLast DoneCommentsDiabetic Ophthalmology Exam1957 Depression Qubjxdcfi27/22/1969Adult BMI Follow Up Plan1975Diabetic Foot Exam1975Abdominal Aortic Aneurysm (AAA) Pzaayb652Colonoscopy /, 05/27/2020Fall Risk Uwzpdpwaf51/14/942530OVID-19 Vaccine ( season)5010/01/2024, 03/25/2024, 08/28/2023, Additional history existsTobacco Aphvmxxna55dult BMI Nrljaxdtb22DTaP,Tdap and Td Vaccines (2 - Td or Tdap) 5010/02/2024Zoster (Shingles) BhlgyxoImgugqmyv53/26/2019, 02/24/2018RSV ( or age 60+ yrs)Tqrpcbgzm09/05/2024Influenza VaccineCompleted 04/21/2025, 03/25/2024, 08/28/2023, Additional history exists Goals GoalPatient Goal TypeAssociated ProblemsRecent ProgressPatient-Stated?Author home and denies needs Elvira Paez RN Note: Evaluation of progress towards goal: home with self care Medical Devices Not on file Procedures Procedure NamePriorityDate/TimeAssociated DiagnosisCommentsMYELOPEROXIDASE AB STAT1 1:41 PM EDT ANCA-associated vasculitis (CMS-HCC) BASIC METABOLIC VGJRPHznxegq16/06/2025 1:41 PM EDT Acute renal failure, unspecified acute renal failure type CLINICAL PATHOLOGY PMEINXOdddwww85/24/2025 12:28 PM EDT CLINICAL PATHOLOGY JNZZQCMpaidou85/24/2025 12:28 PM EDT CLINICAL PATHOLOGY CWWWZPRwsawwk19/24/2025 12:23 PM EDT BEDSIDE FTAFQANHwlfniq03/24/2025 11:54 AM EDT FDQVAXBOPBagkvuv05/24/2025 10:25 AM EDT BEDSIDE MXSCGUHIxkcrzh95/24/2025 8:08 AM EDT TSIIPPUZCRZrpquws14/ 4:35 AM EDT COMPREHENSIVE METABOLIC UAPONDnmyhqd01/24/2025 4:35 AM EDT SIMJLMXTKTeyxtwa59/24/2025 4:35 AM EDT CBC WITH AUTO PQNLBLNJNLTMWvkuoaq05/24/2025 4:34 AM EDT BEDSIDE ZOKCQEPEmpuaxg82/23/2025 9:26 PM EDT BEDSIDE YYZDGMRObfnbei10/23/2025 5:38 PM EDT URINE CREATININE,RANDOMAdd-On04/06/2025 1:12 PM EDT PROTEIN ELECTROPHORESIS, VXYTBDOGB27/23/2025 1:12 PM EDT BEDSIDE DGTBDDUChczntw32/23/2025 12:28 PM EDT IMMUNOELECTROPHORESIS FOR THERAPY DNYAZVPZRRBJQC72/23/2025 11:02 AM EDT PROTEIN ELECTROPHORESIS, TGYPWTYZQ42/23/2025 11:02 AM EDT GLOMERULAR BASEMENT MEMBRANE IGG EYWDKC0704/06/2025 11:02 AM EDT SODIUM, URINE, GNQZOLZsylvaf64/23/2025 9:48 AM EDT FREE LIGHT CHAINSSTAT Add-on04/06/2025 9:04 AM EDT CYTOPLASMIC NEUTROPHILIC AB (ANCA), SSTAT Add-on04/06/2025 9:04 AM EDT JR SCREEN W/ REFLEXSTAT Add-on04/06/2025 9:04 AM EDT C4 COMPLEMENTSTAT Add-on04/06/2025 9:04 AM EDT C3 COMPLEMENTSTAT Add-on04/06/2025 9:04 AM EDT PARATHYROID HORMOME, INTACTAdd-On04/06/2025 9:04 AM EDT PSA, TOTAL AND DVWGRzmjuva61/23/2025 9:04 AM EDT BEDSIDE MHEXUYMIzettnd03/23/2025 8:18 AM EDT FOLATEAdd-On04/06/2025 5:11 AM EDT VITAMIN I67Ppq-Mg32/23/2025 5:11 AM EDT FERRITINAdd-On04/06/2025 5:11 AM EDT IRON AND TIBCAdd-On04/06/2025 5:11 AM EDT VITAMIN D 25 HYDROXYAdd-On04/06/2025 5:11 AM EDT OSMOLALITYAdd-On04/06/2025 5:11 AM EDT HEMOGLOBIN S7SXig-Mb43/23/2025 5:11 AM EDT COMPREHENSIVE METABOLIC JSEGDGEZZ65/23/2025 5:11 AM EDT CBC WITH AUTO KTDXEYKBYUUSKtyjyps60/23/2025 5:11 AM EDT BEDSIDE WJTZZPRRbokvqn44/23/2025 4:50 AM EDT POCT NURSING URINE MACROSCOPIC RLJexjrcn04/23/2025 2:22 AM EDT PROTEIN, URINE, RANDOMAdd-On04/06/2025 2:15 AM EDT URINE CREATININE,AUBSKIFKVR48/23/2025 2:15 AM EDT SODIUM, URINE, DKJHNKPXOA48/23/2025 2:15 AM EDT OSMOLALITY, AOYDHWLWM65/23/2025 2:[address] ABDOMEN AND PELVIS WO DALVOAFX96/22/2025 6:30 PM EDT BLOOD GAS, AXHNCXLTND82/22/2025 5:27 PM EDT ACETONE,(BETAHYDROXYBUTYRATE, KETONE) QUANTITATIVE SERUMSTAT Add-on04/05/2025 5:16 PM EDT MVOFLANTNUMLB87/22/2025 5:16 PM EDT BASIC METABOLIC CDKQZGSQA44/22/2025 5:16 PM EDT CBC WITH AUTO WTOGHYUUXPMPHNHE54/22/2025 5:16 PM EDT PM ED CRITICAL DFINNrgtufx16/22/2025 4:[address] BRAIN WO JMJCXFCI47/18/2025 1:30 PM EDT MAGNESIUMSTAT Add-on04/01/2025 1:20 PM EDT CK TOTALSTAT Add-on04/01/2025 1:20 PM EDT COMPREHENSIVE METABOLIC QQZOIRMUC39/18/2025 1:20 PM EDT TWFYJVZR71/18/2025 1:20 PM EDT PROTIME & ELNSUFZ7004/01/2025 1:20 PM EDT CBC WITH AUTO IHEIRTSXQUKXDNVT45/18/2025 1:20 PM EDT ECG 12-QGJOZEXE86/18/2025 12:51 PM EDT PROVATION JLGPWFCGDJPTxzntju92/13/2020 10:05 AM EST from Last 3 Months or Most Recently Relevant to Health Maintenance Results * Myeloperoxidase AB (04/19/2025 1:41 PM EDT)ComponentValueRef RangeTest Method Analysis TimePerformed AtPathologist SignatureMYELOPEROXIDASE AB<0.2<1.0 AI 04/19/2025 9:08 PM [facility] LABORATORYSpecimen (Source) Anatomical Location / LateralityCollection Method / VolumeCollection Time Received TimeBloodVenous blood / UnknownVenipuncture / Dfzzcqo4904/19/2025 1:41 PM EDT1 1:41 PM EDT Narrative Authorizing ProviderResult TypeResult StatusRamy Luis Daniel TAYLOR BLOOD ORDERABLES Final ResultPerforming OrganizationAddressCity/State/ZIP CodePhone Number [facility] [address] [place] [address], * (ABNORMAL) Basic Metabolic Panel (04/19/2025 1:41 PM EDT) Only the most recent of2 resultswithin the time period is included. ComponentValueRef RangeTest MethodAnalysis TimePerformed AtPathologist Signature YHVOBR170(L)134 - 146 mmol/L1 7:58 PM [facility] LABORATORYPOTASSIUM5.1(H)3.5 - 5.0 mmol/L1 7:58 PM [facility] CPTHEVCBHVLVMUGIKE57(L)98 - 109 mmol/L1 7:58 PM [facility] LABORATORYCARBON RQFSMPY9960 - 32 mmol/L1 7:58 PM EDT [facility] LABORATORYANION MGP627 - 15 mmol/L1 7:58 PM [facility] LABORATORYBLOOD UREA UWZTQNGX413 - 27 mg/dL 04/19/2025 7:58 PM [facility] LABORATORYCREATININE1.64(H)0.60 - 1.30 mg/dL04/19/2025 7:58 PM [facility] LABORATORYComment: METHOD TRACEABLE TO IDMS TCAKAKZLQQEHZNW678(HH)65 - 99 mg/dL04/19/2025 7:58 PM [facility] LABORATORYCALCIUM9.68.5 - 10.5 mg/dL04/19/2025 7:58 PM [facility] LABORATORYEGFR Non-Race Cryttzifg86(L)>=60 ml/min/1.73sq.m1 7:58 PM [facility] LABORATORYComment: Reported eGFR is based on the CKD-EPI 2020 equation that does not use a race coefficient. Specimen (Source)Anatomical Location / LateralityCollection Method / Volume Collection TimeReceived TimeBloodVenous blood / UnknownVenipuncture / Unknown 04/19/2025 1:41 PM EDT1 1:41 PM EDT Narrative Authorizing ProviderResult TypeResult StatusLindsmegan Hylton KINDERGARTEN PARAPROFESSIONAL-CNPLAB BLOOD ORDERABLESFinal ResultPerforming OrganizationAddressCity/State/ZIP CodePhone Number [facility] [address] [place] [phone], * Clinical Pathology Review (04/07/2025 12:28 PM EDT) Only the most recent of3 resultswithin the time period is included. ComponentValueRef RangeTest MethodAnalysis TimePerformed AtPathologist Signature Case ReportClinical Pathology Report ? Case: [id number] ? Authorizing Provider: ??Alex Tolliver MD ? Collected: ? 04/07/2025 1228 ? Ordering Location: ? [facility] ??Received: ?04/07/2025 1228 ? a Division of [facility] - [facility] ? Med-Surg/Ortho ? Pathologist: ? Jessi M Purnima, MD ? Specimens: ?? 1) - Blood, Venous ? 2) - Blood, Venous ? 04/07/2025 6:28 PM [facility] LABORATORYFinal DiagnosisMild hypoalbuminemia with mild increase in acute phase reactants. No monoclonal protein identified. 04/07/2025 6:28 PM [facility] at 1828 EDTSpecimen (Source)Anatomical Location / LateralityCollection Method / VolumeCollection TimeReceived Time Venous blood / Qttmvnd1504/07/2025 12:28 PM EDT04/07/2025 12:28 PM EDTVenous blood / Rcibbuk0304/07/2025 12:28 PM EDT04/07/2025 12:28 PM EDT Narrative Authorizing ProviderResult TypeResult StatusAlex Tolliver MD PATHOLOGY/CYTOLOGY ORDERABLESFinal ResultPerforming OrganizationAddress City/State/ZIP CodePhone Number [facility] [address] [place] [address], [place] [phone] * (ABNORMAL) Bedside Glucose *Place/Obtain serum glucose if >500 per glucometer. (04/07/2025 11:54AM EDT) Only the most recent of7 resultswithin the time period is included. ComponentValueRef RangeTest MethodAnalysis TimePerformed AtPathologist Signature Bedside Glucose (POC)373(H)65 - 99 mg/dL04/07/2025 12:25 PM [facility] LABSpecimen (Source)Anatomical Location / LateralityCollection Method / VolumeCollection TimeReceived Timearterial//24/2025 11:54 AM EDT 04/07/2025 12:25 PM EDT Narrative Authorizing ProviderResult TypeResult StatusBerkley Bates MDPOINT OF CARE TEST ORDERABLESFinal ResultPerforming OrganizationAddressCity/State/ZIP Code Phone Number [facility] [address] [place] [address], [place] * Potassium (04/07/2025 10:25 AM EDT)ComponentValueRef RangeTest MethodAnalysis TimePerformed AtPathologist SignaturePOTASSIUM3.53.5 - 5.0 mmol/L04/07/2025 11:01 AM [facility] LABSpecimen (Source)Anatomical Location / LateralityCollection Method / VolumeCollection TimeReceived TimeBloodVenous blood / UnknownVenipuncture / Ththzgv0404/07/2025 10:25 AM EDT04/07/2025 10:41 AM EDT Narrative Authorizing ProviderResult TypeResult StatusVenu Haley Patricio MDLAB BLOOD ORDERABLESFinal ResultPerforming OrganizationAddressCity/State/ZIP CodePhone Number [facility] [address] [place] [phone], [place] * Phosphorus (04/07/2025 4:35 AM EDT)ComponentValueRef RangeTest MethodAnalysis TimePerformed AtPathologist SignaturePHOSPHORUS3.92.4 - 4.9 mg/dL04/07/2025 5:44 AM [facility] LABSpecimen (Source)Anatomical Location / LateralityCollection Method / VolumeCollection TimeReceived TimeBloodVenous blood / UnknownVenipuncture / Ldhvbmt0304/07/2025 4:35 AM EDT04/07/2025 4:48 AM EDT Narrative Authorizing ProviderResult TypeResult StatusAlex Tolliver MDLAB BLOOD ORDERABLESFinal ResultPerforming OrganizationAddressCity/State/ZIP CodePhone Number [facility] [address] [place] [phone], [place] * (ABNORMAL) Magnesium (04/07/2025 4:35 AM EDT) Only the most recent of3 resultswithin the time period is included. ComponentValueRef RangeTest MethodAnalysis TimePerformed AtPathologist Signature MAGNESIUM1.7(L)1.8 - 2.6 mg/dL04/07/2025 5:44 AM [facility] Specimen (Source)Anatomical Location / LateralityCollection Method / Volume Collection TimeReceived TimeBloodVenous blood / UnknownVenipuncture / Unknown 04/07/2025 4:35 AM EDT04/07/2025 4:48 AM EDT Narrative Authorizing ProviderResult TypeResult StatusHaily Forrester PA-CLAB BLOOD ORDERABLESFinal ResultPerforming OrganizationAddressCity/State/ZIP CodePhone Number [facility] [address] [place] [phone], [place] * (ABNORMAL) Comprehensive metabolic panel (04/07/2025 4:35 AM EDT) Only the most recent of3 resultswithin the time period is included. ComponentValueRef RangeTest MethodAnalysis TimePerformed AtPathologist Signature ANDHWW356088 - 146 mmol/L04/07/2025 5:44 AM [facility] LABPOTASSIUM 3.83.5 - 5.0 mmol/L04/07/2025 5:44 AM [facility] XTIXSRTLSJF12889 - 109 mmol/L04/07/2025 5:44 AM [facility] LABCARBON ASTZWOX7944 - 32 mmol/L04/07/2025 5:44 AM [facility] LABANION JHB876 - 15 mmol/L 04/07/2025 5:44 AM [facility] LABBLOOD UREA BDXGOABH13(H)5 - 27 mg/dL04/07/2025 5:44 AM [facility] LABCREATININE3.80(H)0.60 - 1.30 mg/dL04/07/2025 5:44 AM [facility] LABComment:METHOD TRACEABLE TO IDMS TRFEXGVHJWDZZMN5843 - 99 mg/dL04/07/2025 5:44 AM [facility] LABCALCIUM9.88.5 - 10.5 mg/dL04/07/2025 5:44 AM [facility] LABTOTAL PROTEIN7.16.0 - 8.0 g/dL04/07/2025 5:44 AM [facility] LABALBUMIN3.7 3.2 - 5.3 g/dL04/07/2025 5:44 AM [facility] LABALKALINE PHOSPHATASE 9139 - 130 U/L04/07/2025 5:44 AM [facility] HUICLJ59<=41 U/L 04/07/2025 5:44 AM [facility] LABALT9<=40 U/L04/07/2025 5:44 AM [facility] LABBILIRUBIN,TOTAL0.50.3 - 1.2 mg/dL04/07/2025 5:44 AM [facility] LABEGFR Non-Race Vuwstsfxm97(L)>=60 ml/min/1.73sq.m 04/07/2025 5:44 AM [facility] LABComment: Reported eGFR is based on the CKD-EPI 2020 equation that does not use a race coefficient. Specimen (Source)Anatomical Location / LateralityCollection Method / Volume Collection TimeReceived TimeBloodVenous blood / UnknownVenipuncture / Unknown 04/07/2025 4:35 AM EDT04/07/2025 4:48 AM EDT Narrative Authorizing ProviderResult TypeResult StatusHaily GALLAGHER BLOOD ORDERABLESFinal ResultPerforming OrganizationAddressCity/State/ZIP CodePhone Number [facility] [address] [place] [address], * (ABNORMAL) CBC auto differential (04/07/2025 4:34 AM EDT) Only the most recent of4 resultswithin the time period is included. ComponentValueRef RangeTest MethodAnalysis TimePerformed AtPathologist Signature WBC6.84 - 11 x10E9/L04/07/2025 5:06 AM [facility] LABRBC Count4.00 (L)4.1 - 5.7 X10E12/L04/07/2025 5:06 AM [facility] LABHemoglobin 12.1(L)13 - 17 g/dL04/07/2025 5:06 AM [facility] BFASknrfqpkvc63.2 (L)39 - 50 %04/07/2025 5:06 AM [facility] IYCJJM4360 - 100 fL 04/07/2025 5:06 AM [facility] EINAOA00.227 - 34 pg04/07/2025 5:06 AM [facility] ATPFJWH72.432 - 36 g/dL04/07/2025 5:06 AM [facility] UWLWIJ11.411.5 - 15 %04/07/2025 5:06 AM [facility] LABPlatelet Sekdg745824 - 450 X10E9/L04/07/2025 5:06 AM [facility] LABMPV7.77 - 12 fL04/07/2025 5:06 AM [facility] MA[facility] LABNeutrophils % 49.7%04/07/2025 5:06 AM [facility] MA[facility] LABLymphocytes %35.2%04/07/2025 5:06 AM [facility] MA[facility] LABMonocytes %10.1%04/07/2025 5:06 AM [facility] LABEosinophils %4.3%04/07/2025 5:06 AM [facility] LAB Basophils %0.7%04/07/2025 5:06 AM [facility] LABNeutrophils Absolute (A)3.41.5 - 6.6 10*3/uL04/07/2025 5:06 AM [facility] LAB Lymphocytes Absolute2.41.0 - 3.5 10*3/uL04/07/2025 5:06 AM [facility] LABMonocytes Absolute0.70.0 - 0.9 10*3/uL04/07/2025 5:06 AM [facility] LABEosinophils Absolute0.30.0 - 0.4 10*3/uL04/07/2025 5:06 AM [facility] LABBasophils Absolute0.00.0 - 0.2 10*3/uL04/07/2025 5:06 AM [facility] LABDifferential TypeAUTOMATED ZPCPMUNYAHSM43/24/2025 5:06 AM [facility] LABSpecimen (Source)Anatomical Location / LateralityCollection Method / VolumeCollection TimeReceived TimeBloodVenous blood / UnknownVenipuncture / Ngxrpdj9004/07/2025 4:34 AM EDT04/07/2025 4:48 AM EDT Narrative Authorizing ProviderResult TypeResult StatusNicole Susan Forrester PA-CLAB BLOOD ORDERABLESFinal ResultPerforming OrganizationAddressCity/State/ZIP CodePhone Number [facility] [address] [place] [address], * Urine Creatinine,random (04/06/2025 1:12 PM EDT) Only the most recent of2 resultswithin the time period is included. ComponentValueRef RangeTest MethodAnalysis TimePerformed AtPathologist Signature URINE CREATININE,RDM33.24mg/dL04/06/2025 1:44 PM [facility] LAB Specimen (Source)Anatomical Location / LateralityCollection Method / Volume Collection TimeReceived TimeUrineUrine / UnknownCollection / Zvvlwwz4604/06/2025 1:12 PM EDT04/06/2025 1:12 PM EDT Narrative Authorizing ProviderResult TypeResult StatusAlex JAMES ORDERABLESFinal ResultPerforming OrganizationAddressCity/State/ZIP CodePhone Number [facility] [address] [place] [address], * Protein electrophoresis, urine (04/06/2025 1:12 PM EDT)ComponentValueRef Range Test MethodAnalysis TimePerformed AtPathologist SignatureUrine Protein Electrophoresis InterpSee Pathology Azbfpy2204/07/2025 9:09 PM [facility] LABORATORYSpecimen (Source)Anatomical Location / Laterality Collection Method / VolumeCollection TimeReceived TimeUrineCollection / Pojljus8904/06/2025 1:12 PM EDT04/06/2025 1:12 PM EDT Narrative Authorizing ProviderResult TypeResult StatusAlex JAMES ORDERABLESFinal ResultPerforming OrganizationAddressCity/State/ZIP CodePhone Number [facility] [address] [place] [address], * Glomerular basement membrane IgG AB (04/06/2025 11:02 AM EDT)ComponentValueRef RangeTest MethodAnalysis TimePerformed AtPathologist SignatureGBM IGG AB<0.2 <1.0 AI04/06/2025 3:14 PM [facility] LABORATORYSpecimen (Source)Anatomical Location / LateralityCollection Method / VolumeCollection TimeReceived TimeBloodVenous blood / UnknownVenipuncture / Vglweol6404/06/2025 11:02 AM EDT04/06/2025 11:07 AM EDT Narrative Authorizing ProviderResult TypeResult StatusAlex TAYLOR BLOOD ORDERABLESFinal ResultPerforming OrganizationAddressCity/State/ZIP CodePhone Number [facility] [address] [place] [address], * (ABNORMAL) Immunoelectrophoresis for Therapy Monitoring (04/06/2025 11:02 AM EDT)ComponentValueRef RangeTest MethodAnalysis TimePerformed AtPathologist RlehsqqdcGCS11304 - 378 mg/dL04/07/2025 9:09 PM [facility] EGAWFTBJELTNZ424659 - 1,741 mg/dL04/07/2025 9:09 PM [facility] LHDATMADOTFMZ81(L)45 - 281 mg/dL04/07/2025 9:09 PM [facility] LABORATORYFREE KAPPA LT CHAINS5.37(H)0.33 - 1.94 mg/dL04/07/2025 9:09 PM [facility] LABORATORYImmune Profile InterpretationSee Pathology Tyrdzf1604/07/2025 9:09 PM [facility] LABORATORYFREE LAMBDA LT CHAINS3.96(H)0.57 - 2.63 mg/dL04/07/2025 9:09 PM [facility] LABORATORYFREE ZOILA/LAMBD RATIO1.360.26 - 1.65004/07/2025 9:09 PM EDT [facility] LABORATORYSpecimen (Source)Anatomical Location / LateralityCollection Method / VolumeCollection TimeReceived TimeBloodVenous blood / UnknownVenipuncture / Jfcoybv8604/06/2025 11:02 AM EDT04/06/2025 11:07 AM EDT Narrative Authorizing ProviderResult TypeResult StatusAlex TAYLOR BLOOD ORDERABLESFinal ResultPerforming OrganizationAddressCity/State/ZIP CodePhone Number [facility] [address] [place] [phone], * (ABNORMAL) Protein electrophoresis, serum (04/06/2025 11:02 AM EDT)Component ValueRef RangeTest MethodAnalysis TimePerformed AtPathologist SignatureTOTAL PROTEIN6.06.0 - 8.0 g/dL04/07/2025 9:09 PM [facility] LABORATORYALPHA 1 GLOBULIN0.5(H)0.1 - 0.4 g/dL04/07/2025 9:09 PM [facility] LABORATORYALPHA 2 GLOBULIN0.90.4 - 1.1 g/dL04/07/2025 9:09 PM [facility] LABORATORYBETA GLOBULIN0.90.5 - 1.2 g/dL 04/07/2025 9:09 PM [facility] LABORATORYGAMMA GLOBULIN0.60.5 - 1.6 g/dL04/07/2025 9:09 PM [facility] LABORATORYProtein Electrophoresis InterpSee Pathology Eepfdu4604/07/2025 9:09 PM [facility] LABORATORYAlbumin3.1(L)3.4 - 5.3 g/dL04/07/2025 9:09 PM EDT [facility] LABORATORYSpecimen (Source)Anatomical Location / LateralityCollection Method / VolumeCollection TimeReceived TimeBloodVenous blood / UnknownVenipuncture / Qwcoonb1204/06/2025 11:02 AM EDT04/06/2025 11:07 AM EDT Narrative Authorizing ProviderResult TypeResult StatusAlex TAYLOR BLOOD ORDERABLESFinal ResultPerforming OrganizationAddressCity/State/ZIP CodePhone Number [facility] [address] [place] [address], [place] [phone] * Sodium, urine, random (04/06/2025 9:48 AM EDT) Only the most recent of2 resultswithin the time period is included. ComponentValueRef RangeTest MethodAnalysis TimePerformed AtPathologist Signature URINE SODIUM,XDIDDM90kzyw/L04/06/2025 10:24 AM [facility] Specimen (Source)Anatomical Location / LateralityCollection Method / Volume Collection TimeReceived ShbzXvlee57/23/2025 9:48 AM EDT04/06/2025 10:03 AM EDT Narrative Authorizing ProviderResult TypeResult StatusAlex JAMES ORDERABLESFinal ResultPerforming OrganizationAddressCity/State/ZIP CodePhone Number [facility] [address] [place] [address], [place] * (ABNORMAL) Cytoplasmic Neutrophilic Ab (ANCA), S (04/06/2025 9:04 AM EDT) ComponentValueRef RangeTest MethodAnalysis TimePerformed AtPathologist SignatureC-XUBNPrnnreczQffhkozn12/25/2025 2:56 PM [facility] P-ANCAPositive(A)Ffqnlhyz74/25/2025 2:56 PM [facility] Comment: Positive for pANCA pattern by immunofluorescence. Suggest further testing for anti-myeloperoxidase (anti-MPO) antibodies, if clinically indicated. ADDITIONAL INFORMATION This test was developed and its performance characteristics determined by [facility] in a manner consistent with CLIA requirements. This test has not been cleared or approved by the U.S. Food and Drug Administration. Test Performed by: [facility] [address] [place] [address] Production Bow Maker: Anthony Savage Ph.D.; CLIA# [id number] Specimen (Source)Anatomical Location / LateralityCollection Method / Volume Collection TimeReceived TimeBloodVenous blood / UnknownVenipuncture / Unknown 04/06/2025 9:04 AM EDT04/06/2025 9:18 AM EDT Narrative Authorizing ProviderResult TypeResult StatusAlex Tolliver On-Q-ity BLOOD ORDERABLESFinal ResultPerforming OrganizationAddressCity/State/ZIP CodePhone Number [facility] [address] [place] [address], * Parathyroid Hormone, intact (04/06/2025 9:04 AM EDT)ComponentValueRef Range Test MethodAnalysis TimePerformed AtPathologist SignaturePTH WXCHHP6964 - 88 pg/mL04/06/2025 12:24 PM [facility] LABORATORYSpecimen (Source)Anatomical Location / LateralityCollection Method / VolumeCollection TimeReceived TimeBloodVenous blood / UnknownVenipuncture / Ppdchuw9104/06/2025 9:04 AM EDT04/06/2025 9:18 AM EDT Narrative Authorizing ProviderResult TypeResult StatusAlex Tolliver On-Q-ity BLOOD ORDERABLESFinal ResultPerforming OrganizationAddressCity/State/ZIP CodePhone Number [facility] [address] [place] [address], [place] [phone] * (ABNORMAL) Free light chains (04/06/2025 9:04 AM EDT)ComponentValueRef Range Test MethodAnalysis TimePerformed AtPathologist SignatureFREE ZOILA/LAMBD RATIO 1.400.26 - 1.65004/06/2025 3:21 PM [facility] LABORATORYFREE KAPPA LT CHAINS5.37(H)0.33 - 1.94 mg/dL04/06/2025 3:21 PM [facility] LABORATORYFREE LAMBDA LT CHAINS3.84(H)0.57 - 2.63 mg/dL04/06/2025 3:21 PM [facility] LABORATORYSpecimen (Source)Anatomical Location / LateralityCollection Method / VolumeCollection TimeReceived TimeBloodVenous blood / UnknownVenipuncture / Kydribl5904/06/2025 9:04 AM EDT04/06/2025 9:18 AM EDT Narrative Authorizing ProviderResult TypeResult StatusAlljeff Tolliver MDRAWLINS COUNTY [facility] BLOOD ORDERABLESFinal ResultPerforming OrganizationAddressCity/State/ZIP CodePhone Number [facility] [address] [place] [address], * PSA, total and free (04/06/2025 9:04 AM EDT)ComponentValueRef RangeTest Method Analysis TimePerformed AtPathologist SignaturePROSTATIC SPEC ANT3.370.00 - 4.00 ng/mL04/06/2025 12:18 PM [facility] LABORATORYComment: The method used for this test is Kalpana Lorenza DXI chemiluminescent immunoassay. Values obtained by different assay methods cannot be used interchangeably. FREE PSA0.59ng/mL04/06/2025 12:18 PM [facility] Comment: The method used for this test is Kalpana Lorenza DXI chemiluminescent immunoassay. Values obtained by different assay methods cannot be used interchangeably. % FREE PSA17.5%04/06/2025 12:18 PM [facility] Specimen (Source)Anatomical Location / LateralityCollection Method / Volume Collection TimeReceived TimeBloodVenous blood / UnknownVenipuncture / Unknown 04/06/2025 9:04 AM EDT04/06/2025 9:18 AM EDT Narrative [facility] - 04/06/2025 12:18 PM EDT Percent Free PSA has been reported to have the greatest clinical utility when total PSA values are between 4.0 and 10.0 ng/mL. For men with a total PSA in this range, Percent Free PSA values of >25% are strongly associated with normal or benign prostate conditions. Percent Free PSA levels of <10% suggest that prostate cancer is more likely than BPH. ??For values between 10% and 25%, there is overlap of prostate cancer and BPH. Authorizing ProviderResult TypeResult StatusHaily GALLAGHER BLOOD ORDERABLESFinal ResultPerforming OrganizationAddressCity/State/ZIP CodePhone Number [facility] [address] [address] [place] [address], * C3 complement (04/06/2025 9:04 AM EDT)ComponentValueRef RangeTest Method Analysis TimePerformed AtPathologist SignatureCOMPLEMENT [id number] - 184 mg/dL 04/06/2025 12:19 PM [facility] LABORATORYSpecimen (Source) Anatomical Location / LateralityCollection Method / VolumeCollection Time Received TimeBloodVenous blood / UnknownVenipuncture / Dcqjvbs2704/06/2025 9:04 AM EDT04/06/2025 9:18 AM EDT Narrative Authorizing ProviderResult TypeResult StatusAlex TAYLOR BLOOD ORDERABLESFinal ResultPerforming OrganizationAddressCity/State/ZIP CodePhone Number [facility] [address] [place] [address], * C4 complement (04/06/2025 9:04 AM EDT)ComponentValueRef RangeTest Method Analysis TimePerformed AtPathologist SignatureCOMPLEMENT J17813 - 47 mg/dL 04/06/2025 12:19 PM [facility] LABORATORYSpecimen (Source) Anatomical Location / LateralityCollection Method / VolumeCollection Time Received TimeBloodVenous blood / UnknownVenipuncture / Wqijvzt8404/06/2025 9:04 AM EDT04/06/2025 9:18 AM EDT Narrative Authorizing ProviderResult TypeResult StatusAlex Stephenson Sharee On-Q-ity BLOOD ORDERABLESFinal ResultPerforming OrganizationAddressCity/State/ZIP CodePhone Number [facility] [address] [place] [address], * JR Screen w/ Reflex (04/06/2025 9:04 AM EDT)ComponentValueRef RangeTest MethodAnalysis TimePerformed AtPathologist SignatureANA SCREEN W/REFLEX FvngvrngMrvvlzfn23/23/2025 1:46 PM [facility] Specimen (Source)Anatomical Location / LateralityCollection Method / Volume Collection TimeReceived TimeBloodVenous blood / UnknownVenipuncture / Unknown 04/06/2025 9:04 AM EDT04/06/2025 9:18 AM EDT Narrative [facility] - 04/06/2025 1:46 PM EDT Testing performed using multiplex flow immunoassay. Eleven difference antigens associated with systemic autoimmunie diseases (dsDNA, Sm, Sm/INSPECTOR ELEVATORS, INSPECTOR ELEVATORS, Chromatin, SSA, SSB, Sapna-1, Sc170, Ribo P, Centromere B) are included in this sreening tests. Authorizing ProviderResult TypeResult StatusAlex Lymaninger On-Q-ity BLOOD ORDERABLESFinal ResultPerforming OrganizationAddressCity/State/ZIP CodePhone Number [facility] [address] [place] [address], * (ABNORMAL) Iron and TIBC (04/06/2025 5:11 AM EDT)ComponentValueRef RangeTest MethodAnalysis TimePerformed AtPathologist GqnkijylzHMOP43(L)50 - 212 ug/dL 04/06/2025 11:15 AM [facility] HOKBQBYWKILYEKLXQFRSK378114 - 336 mg/dL04/06/2025 11:15 AM [facility] LABORATORYIRON VHEUJIO611730 - 425 ug/dL04/06/2025 11:15 AM [facility] LABORATORYIRON OGUZFMJMVQ67(L)20 - 50 % SYUZSICJOX93/23/2025 11:15 AM EDT [facility] LABORATORYSpecimen (Source)Anatomical Location / LateralityCollection Method / VolumeCollection TimeReceived TimeBloodVenous blood / UnknownVenipuncture / Vyjgbsh6904/06/2025 5:11 AM EDT04/06/2025 5:21 AM EDT Narrative Authorizing ProviderResult TypeResult StatusAlex TAYLOR BLOOD ORDERABLESFinal ResultPerforming OrganizationAddressCity/State/ZIP CodePhone Number [facility] [address] [place] [address], * (ABNORMAL) Vitamin D 25 hydroxy (04/06/2025 5:11 AM EDT)ComponentValueRef RangeTest MethodAnalysis TimePerformed AtPathologist SignatureVITAMIN D 25 HYD TOT19.9(L)30.0 - 100.0 ng/mL04/06/2025 11:41 AM [facility] LABORATORYSpecimen (Source)Anatomical Location / LateralityCollection Method / VolumeCollection TimeReceived TimeBloodVenous blood / UnknownVenipuncture / Iwqvwpz4204/06/2025 5:11 AM EDT04/06/2025 5:21 AM EDT Narrative [facility] - 04/06/2025 11:41 AM EDT Vitamin D status 25 [place] Vitamin D Deficiency <20 ng/mL Insufficiency ? 20-29 ng/mL Sufficiency ? 30-100 ng/mL Toxicity >100 ng/mL NOTE: A pediatric reference range has not been established by the manufacturing chief engineer of this kit. The [employer] recommends a Vitamin D level of = or >20ng/mL in infants and children. Authorizing ProviderResult TypeResult StatusAlex TAYLOR BLOOD ORDERABLESFinal ResultPerforming OrganizationAddressCity/State/ZIP CodePhone Number [facility] [address] [place] [address], * (ABNORMAL) Osmolality (04/06/2025 5:11 AM EDT)ComponentValueRef RangeTest MethodAnalysis TimePerformed AtPathologist MbtdxqnyxNMYLLNAWCS265(H)280 - 300 mOsm/kg H204/06/2025 9:56 AM [facility] LABORATORYSpecimen (Source)Anatomical Location / LateralityCollection Method / VolumeCollection TimeReceived TimeBloodVenous blood / UnknownVenipuncture / Yspreyf1004/06/2025 5:11 AM EDT04/06/2025 5:21 AM EDT Narrative Authorizing ProviderResult TypeResult StatusNicmelanie GALLAGHER BLOOD ORDERABLESFinal ResultPerforming OrganizationAddressCity/State/ZIP CodePhone Number [facility] [address] [place] [id number], * (ABNORMAL) Hemoglobin A1c (04/06/2025 5:11 AM EDT)ComponentValueRef RangeTest MethodAnalysis TimePerformed AtPathologist SignatureHEMOGLOBIN A1C13.7(H)4.4 - 5.6 %04/06/2025 9:03 AM [facility] LABORATORYComment: ?ADA Guidelines ?Result ?HgbA1c ? Normal : ? less than 5.7 % ? Prediabetes : ?5.7 % ??to 6.4 % Diabetes : > 6.4 % ?Use with caution in patients with abnormal hemoglobin variants as ??the half-life of red blood cells and in vivo glycation rates are ??affected. EST. AVERAGE SYIIASY623vf/dL04/06/2025 9:03 AM [facility] LABORATORYSpecimen (Source)Anatomical Location / LateralityCollection Method / VolumeCollection TimeReceived TimeBloodVenous blood / UnknownVenipuncture / Zhvxxlv6204/06/2025 5:11 AM EDT04/06/2025 5:21 AM EDT Narrative Authorizing ProviderResult TypeResult StatusYrnmelanie Forrester PA-CLAB BLOOD ORDERABLESFinal ResultPerforming OrganizationAddressCity/State/ZIP CodePhone Number [facility] [address] [place] [address], * Folate (04/06/2025 5:11 AM EDT)ComponentValueRef RangeTest MethodAnalysis Time Performed AtPathologist SignatureFOLIC ACID8.7>5.8 ng/mL04/06/2025 11:38 AM [facility] LABORATORYSpecimen (Source)Anatomical Location / LateralityCollection Method / VolumeCollection TimeReceived TimeBloodVenous blood / UnknownVenipuncture / Qjajmmv6304/06/2025 5:11 AM EDT04/06/2025 5:21 AM EDT Narrative Authorizing ProviderResult TypeResult StatusAlex Tolliver MDLAB BLOOD ORDERABLESFinal ResultPerforming OrganizationAddressCity/State/ZIP CodePhone Number [facility] [address] [place] [address], * Ferritin (04/06/2025 5:11 AM EDT)ComponentValueRef RangeTest MethodAnalysis TimePerformed AtPathologist DpahnorqqPYCTSWKZ39727 - 336 ng/mL04/06/2025 11:36 AM [facility] LABORATORYSpecimen (Source)Anatomical Location / LateralityCollection Method / VolumeCollection TimeReceived TimeBloodVenous blood / UnknownVenipuncture / Oobarnt4304/06/2025 5:11 AM EDT04/06/2025 5:21 AM EDT Narrative Authorizing ProviderResult TypeResult StatusAlljeff Tolliver MDLAB BLOOD ORDERABLESFinal ResultPerforming OrganizationAddressCity/State/ZIP CodePhone Number [facility] [address] [place] [address], * Vitamin B12 (04/06/2025 5:11 AM EDT)ComponentValueRef RangeTest MethodAnalysis TimePerformed AtPathologist SignatureVITAMIN [id number] - 914 pg/mL04/06/2025 11:40 AM [facility] LABORATORYSpecimen (Source)Anatomical Location / LateralityCollection Method / VolumeCollection TimeReceived Time BloodVenous blood / UnknownVenipuncture / Wqlkeel1804/06/2025 5:11 AM EDT 04/06/2025 5:21 AM EDT Narrative Authorizing ProviderResult TypeResult StatusAlljeff Tolliver MDLAB BLOOD ORDERABLESFinal ResultPerforming OrganizationAddressCity/State/ZIP CodePhone Number [facility] [address] [place] [address], * (ABNORMAL) POCT Nursing Urine Macroscopic UA (04/06/2025 2:22 AM EDT)Component ValueRef RangeTest MethodAnalysis TimePerformed AtPathologist SignaturePO Urine Specific Gravity1.0101.010, 1.015, 1.020, 1.7123504/06/2025 2:[address] [facility] Urine Leukocyte EsteraseNegative Ylycvqey47/23/2025 2:25 AM EDTPSELECT [facility] Urine WxbprxuTtuzmfmhQldodwvr27/23/2025 2:25 AM TP[facility] Urine pH5.55.0, 6.0, 6.5, 7.0, 7.5, 8.0, 8.5, 5.509 2:25 AM EDTPSELECT [facility] Urine ProteinNegativeNegative 04/06/2025 2:25 AM EDTPSELECT [facility] Urine Doojvfn153 mg/dL(A)Uqpucbsb79/23/2025 2:25 AM EDTPSELECT [facility] Urine TjkmcgnOczcdvzuNnylitvc68/23/2025 2:25 AM TP[facility] Urine Urobilinogen0.2 E.U./dL04/06/2025 2:25 AM EDTPSELECT [facility] Urine OakcvlfosIefhrznxKdjturps56/23/2025 2:25 AM EDTPGERMAN HOSPITALPO Urine Blood/HGBTrace(A)Negative 04/06/2025 2:25 AM EDTPUPPER VALLEY MEDICAL CENTERpecimen (Source) Anatomical Location / LateralityCollection Method / VolumeCollection Time Received UmvsFfhtb79/23/2025 2:22 AM EDT04/06/2025 2:25 AM EDT Narrative Authorizing ProviderResult TypeResult StatusRegino Martinez DOPOINT OF CARE TEST ORDERABLESFinal ResultPerforming OrganizationAddressCity/State/ZIP CodePhone Number [facility] [address] [place] [address], [place] * (ABNORMAL) Protein, urine, random (04/06/2025 2:15 AM EDT)ComponentValueRef RangeTest MethodAnalysis TimePerformed AtPathologist SignatureURINE PROTEIN, RANDOM (MG/L)210(H)<120 mg/L04/06/2025 11:05 AM [facility] LABORATORYSpecimen (Source)Anatomical Location / LateralityCollection Method / VolumeCollection TimeReceived NzcfOtypt41/23/2025 2:15 AM EDT04/06/2025 2:48 AM EDT Narrative Authorizing ProviderResult TypeResult StatusAlex Tolliver MDJEEVAN ORDERABLESFinal ResultPerforming OrganizationAddressCity/State/ZIP CodePhone Number [facility] [address] [place] [address], [place] [phone] * Osmolality, urine (04/06/2025 2:15 AM EDT)ComponentValueRef RangeTest Method Analysis TimePerformed AtPathologist SignatureURINE QHFPFUSOTK367117 - 1,300 mOsm/kg H204/06/2025 10:10 AM [facility] LABORATORYSpecimen (Source)Anatomical Location / LateralityCollection Method / VolumeCollection TimeReceived NfocWbnks81/23/2025 2:15 AM EDT04/06/2025 2:48 AM EDT Narrative Authorizing ProviderResult TypeResult StatusRegino Martinez DOURINE ORDERABLES Final ResultPerforming OrganizationAddressCity/State/ZIP CodePhone Number [facility] [address] [place] [address], * CT abdomen and pelvis without contrast (04/05/2025 6:30 PM EDT)Anatomical RegionLateralityModalityBody, Abdomen, Body CoveraN/AComputed Tomography Specimen (Source)Anatomical Location / LateralityCollection Method / Volume Collection TimeReceived Time04/05/2025 6:32 PM EDT Narrative 04/05/2025 6:49 PM EDT History: ??New acute onset renal failure. Exam/Technique: ??Contiguous axial images are obtained of the abdomen pelvis without intravenous contrast. ??Coronal and sagittal reconstructions were performed and reviewed. Automatic dose exposure reduction technique utilized. Comparison: ??01/15/2024. Findings: ?? Acute findings:No acute soft tissues abnormality induration around the right kidney with dilatationof the collecting system and ureter. There is no obvious soft tissue swelling obstructive uropathy. Appendix normal. No bowel related abnormality of an acute nature. No free fluid or free air. Chronic findings:Advanced degenerative changes. Advanced atherosclerotic changes without acute abnormality. The gallbladder is contracted. There is extensive chronic calcification of the pancreas as previously documented with a stable cystic area noted near the neck patency documented measuring 1.5 cm. Follow-up according to incidental pancreatic cyst guidelines. Fecal loading of the colon. Prominent prostate gland distended urinary bladder. The umbilical fat-containing hernia. Degenerative changes are noted. Incidental findings:Phleboliths. IMPRESSION: ?? No acute findings. Contracted bladder. Cyst within the pancreatic neck is stable since 2023 and requires follow-up to 10 years to assess stability. This can be done at a annual screening for 5 years and then screening every 2 years: #[address] scans at this facility use dose modulation, iterative reconstruction, and/or weight based dosing when appropriate to reduce radiation dose to as low as reasonably achievable. Finalized by Nadir Adkins MD on 04/05/2025 6:49 PM Procedure Note Nadir Adkins MD - 04/05/2025 History: New acute onset renal failure. Exam/Technique: Contiguous axial images are obtained of the abdomenpelvis without intravenous contrast. Coronal and sagittal reconstructionswere performed and reviewed. Automatic dose exposure reduction technique utilized. Comparison: 01/15/2024. Findings: Acute findings:No acute soft tissues abnormality induration around theright kidney with dilatation of the collecting system and ureter. There isno obvious soft tissue swelling obstructive uropathy. Appendix normal. No bowel related abnormality of an acute nature. No free fluid or free air. Chronic findings:Advanced degenerative changes. Advanced atheroscleroticchanges without acute abnormality. The gallbladder is contracted. There is extensive chronic calcification ofthe pancreas as previously documented with a stable cystic area noted nearthe neck patency documented measuring 1.5 cm. Follow-up according toincidental pancreatic cyst guidelines. Fecal loading of the colon. Prominent prostate gland distended urinary bladder. The umbilical fat-containing hernia. Degenerative changes are noted. Incidental findings:Phleboliths. IMPRESSION: No acute findings. Contracted bladder. Cyst within the pancreatic neck isstable since 2023 and requires follow-up to 10 years to assess stability.This can be done at a annual screening for 5 years and then screeningevery 2 years: #[address] scans at this facility use dose modulation, iterativereconstruction, and/or weight based dosing when appropriate to reduceradiation dose to as low as reasonably achievable. Finalized by Nadir Adkins MD on 04/05/2025 6:49 PM Authorizing ProviderResult TypeResult StatusRegino Martinez [facility] ORDERABLES Final Result * (ABNORMAL) Blood gas, venous (04/05/2025 5:27 PM EDT)ComponentValueRef Range Test MethodAnalysis TimePerformed AtPathologist SignatureSample typeVENOUS 04/05/2025 5:31 PM [facility]pH, Venous7.162(L) 7.320 - 7.6294804/05/2025 5:31 PM EDOH[facility]PITALpCO2, Urggid10.235.0 - 50.0 mmHg04/05/2025 5:31 PM EDOH[facility]HE[facility]ITALpO2, Vrsuuu871(H)30 - 50 mmHg04/05/2025 5:31 PM [facility]Base, Deficit-12.0(L)0.0 - 2.0 mmol/L04/05/2025 5:31 PM EDT [facility]HCO3, Cswzxh88.2(L)20.0 - 24.0 mmol/L 04/05/2025 5:31 PM [facility]%O2 Saturation, Xuurgf16.0%04/05/2025 5:31 PM EDOHIOHE[facility] HARDIN [facility]ORIAL HOSPITALAllen's testN/A004/05/2025 5:31 PM [facility] ANDERSONample siteN/A 04/05/2025 5:31 PM [facility] ANDERSONource Of OxygenRoom Air04/05/2025 5:31 PM [facility] (Source) Anatomical Location / LateralityCollection Method / VolumeCollection Time Received TimevenousVenous blood / Acruuic4104/05/2025 5:27 PM EDT04/05/2025 5:31 PM EDT Narrative Authorizing ProviderResult TypeResult Terrence MILLAN BLOOD ORDERABLES Final ResultPerforming OrganizationAddressCity/State/ZIP CodePhone Number [address] [place] [address], [place] * (ABNORMAL) Acetone, (BetaHydroxybutyrate, Ketone) quantitative, serum (04/05/2025 5:16 PM EDT)ComponentValueRef RangeTest MethodAnalysis Time Performed AtPathologist SignatureBETAHYDROXYBUTYRATE0.88(H)0.02 - 0.27 mmol/L 04/05/2025 7:00 PM [facility] (Source) Anatomical Location / LateralityCollection Method / VolumeCollection Time Received TimeBloodVenous blood / UnknownVenipuncture / Gflzagi2904/05/2025 5:16 PM EDT04/05/2025 5:32 PM EDT Narrative Authorizing ProviderResult TypeResult StatusRegino Martinez DOLAB BLOOD ORDERABLES Final ResultPerforming OrganizationAddressCity/State/ZIP CodePhone Number [facility] [address] [place] [address], [place] * Critical Care (04/05/2025 4:49 PM EDT) Narrative Regino Martinez DO - 04/05/2025 4:49 PM EDT Regino Martinez DO 04/06/2025 9:30 PM Critical Care Performed by: Regino Martinez DO Authorized by: Regino Martinez DO ?? Critical care provider statement: ??Critical care time (minutes): ??35 ??Critical care start time: ??04/05/2025 4:53 PM ??Critical care was necessary to treat or prevent imminent or life-threatening deterioration of the following conditions: ??Renal failure Authorizing ProviderResult TypeResult StatusRegino Martinez DOPROCEDURE/MINOR SURGICAL ORDERABLESFinal Result * CT brain without contrast (04/01/2025 1:30 PM EDT)Anatomical RegionLaterality ModalityNeuro, Head, Head and Neck, Neuro CoveraN/AComputed TomographySpecimen (Source)Anatomical Location / LateralityCollection Method / VolumeCollection TimeReceived Time04/01/2025 1:31 PM EDT Narrative 04/01/2025 1:[address] BRAIN WO CONT HISTORY: Fall, right eye abrasion COMPARISON: 09/14/2015 TECHNIQUE: * ??CT brain without intravenous contrast. ??Automated exposure control was utilized. * ?? All CT scans at this facility use dose modulation, iterative reconstruction, and/or weight based dosing when appropriate to reduce radiation dose to as low as reasonably achievable. FINDINGS: No acute intracranial hemorrhage, territorial infarct, mass effect, or shift of midline structure. ??The cerebral volume, ventricles, cisterns, and sulci appear appropriate for patient age. ?? Intraorbital contents appear unremarkable. ??Paranasal sinuses and mastoid air cells appear well aerated. IMPRESSION: * ??No acute intracranial findings by CT. Approved by Resident: Lawrence Castillo MD ??on 04/01/2025 1:31 PM Mustapha Spencer MD have personally reviewed the image(s) and agree with and/or edited the report Finalized by Mustapha Chong MD on 04/01/2025 1:35 PM Procedure Note Mustapha Chong MD - 04/01/2025 CT BRAIN WO CONT HISTORY: Fall, right eye abrasion COMPARISON: 09/14/2015 TECHNIQUE: * CT brain without intravenous contrast. Automated exposure control wasutilized. * All CT scans at this facility use dose modulation, iterativereconstruction, and/or weight based dosing when appropriate to reduceradiation dose to as low as reasonably achievable. FINDINGS: No acute intracranial hemorrhage, territorial infarct, mass effect, orshift of midline structure. The cerebral volume, ventricles, cisterns,and sulci appear appropriate for patient age. Intraorbital contents appear unremarkable. Paranasal sinuses and mastoidair cells appear well aerated. IMPRESSION: * No acute intracranial findings by CT. Approved by Resident: Lawrence Castillo MD on 04/01/2025 1:31PM I, Mustapha Chong MD have personally reviewed the image(s) and agreewith and/or edited the report Finalized by Mustapha Chong MD on 04/01/2025 1:35 PM Authorizing ProviderResult TypeResult Luiza VERDUGO CT ORDERABLES Final Result * APTT (04/01/2025 1:20 PM EDT)ComponentValueRef RangeTest MethodAnalysis Time Performed AtPathologist SsxpxnobiLTWB8793 - 37 sec04/01/2025 1:59 PM EDT [facility]ENTERpecimen (Source)Anatomical Location / LateralityCollection Method / VolumeCollection TimeReceived TimeBloodVenous blood / UnknownVenipuncture / Yfubits4904/01/2025 1:20 PM EDT04/01/2025 1:23 PM EDT Narrative Authorizing ProviderResult TypeResult Luiza TAYLOR BLOOD ORDERABLES Final ResultPerforming OrganizationAddressCity/State/ZIP CodePhone Number [facility] [address] [place] [address], * (ABNORMAL) Protime & INR (04/01/2025 1:20 PM EDT)ComponentValueRef RangeTest MethodAnalysis TimePerformed AtPathologist SignaturePROTIME9.3(L)9.8 - 13.2 sec04/01/2025 1:59 PM EDTPROMEDMOUNT ZION CAMPUSINR0.8(L)0.9 - 1.2 04/01/2025 1:59 PM EDTPROMEDKindred Hospitaln (Source) Anatomical Location / LateralityCollection Method / VolumeCollection Time Received TimeBloodVenous blood / UnknownVenipuncture / Huvfxet4404/01/2025 1:20 PM EDT04/01/2025 1:23 PM EDT Narrative Authorizing ProviderResult TypeResult StatusGregory TAYLOR BLOOD ORDERABLES Final ResultPerforming OrganizationAddressCity/State/ZIP CodePhone Number [address] [place] [address], [place] * CK Total (04/01/2025 1:20 PM EDT)ComponentValueRef RangeTest MethodAnalysis TimePerformed AtPathologist EasleindlWPK1517 - 195 U/L04/01/2025 2:15 PM EDT [facility] (Source)Anatomical Location / LateralityCollection Method / VolumeCollection TimeReceived TimeBloodVenous blood / UnknownVenipuncture / Duyqihr9604/01/2025 1:20 PM EDT04/01/2025 1:23 PM EDT Narrative Authorizing ProviderResult TypeResult Luiza TAYLOR BLOOD ORDERABLES Final ResultPerforming OrganizationAddressCity/State/ZIP CodePhone Number [address] [place] [address], [place] * ECG 12 lead (04/01/2025 12:51 PM EDT)Specimen (Source)Anatomical Location / LateralityCollection Method / VolumeCollection TimeReceived Time04/01/2025 12:51 PM EDT Narrative [facility] - 04/01/2025 1:40 PM EDT Authorizing ProviderResult TypeResult Luiza MILLERG ORDERABLESFinal ResultPerforming OrganizationAddressCity/State/ZIP CodePhone Number [facility] * ES colonoscopy imaging (05/27/2020 10:05 AM EST)Specimen (Source)Anatomical Location / LateralityCollection Method / VolumeCollection TimeReceived Time Narrative SYSTEMGENERATED, DOCUMENTATION - 05/27/2020 10:05 AM EST This order has been auto-finalized for image and report archival. *See procedures tab in Epic or report included with PACS images for full interpretation.* Authorizing ProviderResult TypeResult StatusJoseph E Lindena MDIMG OR IMG ORDERABLESFinal Result from Last 3 Months or Most Recently Relevant to Health Maintenance Insurance * Guarantor: Bhavin Pulliam Jr.Account TypeRelation to PatientDate of PhoneBilling AddressPersonal/WuyirdXghp[address] [place] [phone] Advance Directives * Full Code (Latest Code Status on File) Date ActivatedDate InactivatedComments04/06/2025 4:35 AM04/07/2025 7:41 PM * Full Code Date ActivatedDate InactivatedComments01/16/2024 12:47 AM01/16/2024 9:33 AM * Full Code Date ActivatedDate InactivatedComments12/03/2023 6:32 PM12/04/2023 5:43 PM * Full Code Date ActivatedDate InactivatedComments08/21/2022 8:01 PM2 8:43 PM Care Teams Team MemberRelationshipSpecialtyStart DateEnd Date Services, [facility] [address] [place], [place] PCP - GeneralFamily Medicine04/01/25
--- OUTSIDE RECORDS SUMMARY | 2025-05-25 09:05 | XMS_ITS | Clinical Summary ---
Author Organization [facility] Address [address] [place] [address] Care Team Providers Care Supervisor Stripping Name Role Phone Unavailable Primary Care Provider Unavailabl e Social History Tobacco UseTypesPacks/DayYears UsedDateSmoking Tobacco: Never AssessedUT Safety & EnvironmentAnswerDate RecordedFear of Current or Ex-PartnerNot on file 09/05/2023Emotionally AbusedNot on file09/05/2023hysically AbusedNot on file 09/05/2023Sexually AbusedNot on file09/05/2023hysically or Sexually AbusedNot on file09/05/2023Sex and Gender InformationValueDate RecordedSex Assigned at BirthNot on fileLegal KeyCzjn8601/11/2022 12:11 AM EDTGender IdentityNot on file Sexual OrientationNot on file Last Filed Vital Signs Vital SignReadingTime TakenCommentsBlood Hahstjao436/7507/ 10:05 AM EDT Smkar143409/17/2018 8:56 AM NLOGudhromkmnv95.2 ??C (97.2 ??F)09/17/2018 8:56 AM ESTRespiratory Rate--Oxygen Whuqbexxwu83%02/02/2022 10:04 AM EDTInhaled Oxygen Concentration--Yygafa44.3 kg (155 lb)02/02/2022 9:59 AM QYBVbpidk855.2 cm (5' 7 )02/02/2022 9:52 AM EDTBody Mass Index24.28002/02/2022 9:52 AM EDT Plan of Treatment Health MaintenanceDue DateLast DoneCommentsCT Kasiecqoqcoj1955Colonoscopy 1955Colorectal Cancer Nqbmiaoah1955FIT-DNA1955FIT1955 FOBT05/05/19571510Qsfohjcidigmp1957Diabetes: Retinopathy Xkgfqapfi16/22/1967 Depression Lmjjbtwru82/22/1969Diabetes: Urine Protein Kovdqgywu78/22/1976Adult Fnlvads4705/05/1979Zoster Vaccines (1 of 2)2007Diabetes: Hemoglobin A1C Pneumococcal Vaccine: 50+ Years (2 of 2 - PCV20 or PCV21) /01/2020Fall Risk Ownqgkfxv20/22/2022OVID-19 Vaccine (1 - 2024- season)2025Influenza Vaccine (#1)509/04/2022, 03/28/2021, 02/19/2019, Additional history existsHIB VaccinesAged OutNo longer eligible based on patient's age to complete this topicHPV VaccinesAged OutNo longer eligible based on patient's age to complete this topicIPV VaccinesAged OutNo longer eligible based on patient's age to complete this topicMeningococcal B VaccineAged OutNo longer eligible based on patient's age to complete this topic Meningococcal VaccineAged OutNo longer eligible based on patient's age to complete this topicRotavirus VaccinesAged OutNo longer eligible based on patient's age to complete this topic Procedures Procedure NamePriorityDate/TimeAssociated DiagnosisCommentsHEMOGLOBIN Z0EToqnhwv 08/01/2018 3:38 PM EST from Last 3 Months or Most Recently Relevant to Health Maintenance Results * Hemoglobin A1C (08/01/2018 3:38 PM EST)ComponentValueRef RangeTest Method Analysis TimePerformed AtPathologist SignatureHemoglobin A1C5.94.0 - 6.0 %LAB CONVERSIONSEstimated Average Pfmjwjs75365 - 126 mg/dLLAB CONVERSIONSSpecimen (Source)Anatomical Location / LateralityCollection Method / VolumeCollection TimeReceived Time08/01/2018 3:38 PM EST08/01/2018 3:54 PM EST Narrative LAB CONVERSIONS - 08/02/2018 9:06 AM EST No: Do not add to previous draw Authorizing ProviderResult TypeResult StatusNnlincoln Cano MDLAB BLOOD ORDERABLES Final ResultPerforming OrganizationAddressCity/State/ZIP CodePhone Number LAB CONVERSIONS from Last 3 Months or Most Recently Relevant to Health Maintenance Insurance * Guarantor: Bhavin Pullaim JrAccount TypeRelation to PatientDate of PhoneBilling AddressPersonal/LnkqnsOhfi1955 [address] [phone]
[2025-05-25 10:02] LABS: INR 1.03; Partial Thromboplastin Time 27.9 sec (22.3-36.2); Prothrombin Time 10.9 sec (9.0-11.6)
[2025-05-25 10:06] LABS: Hematocrit 38.3 % (42.0-54.0); Hemoglobin 12.7 g/dL (14.0-18.0); Immature Granulocytes Abs Auto 0.05 10^3/uL (0.00-0.03); Immature Granulocytes Pct Auto 0.6 % (0.0-0.5); Lymphocytes Absolute Auto 2.5 10^3/uL (1.2-3.8); Mean Corpuscular HGB Conc 33.2 g/dL (29.9-35.2); Mean Corpuscular Hemoglobin 31.0 pg (25.9-34.0); Mean Corpuscular Volume 93.4 fL (80.0-94.0); Platelet Count 309 10^3/uL (150-450); Red Blood Count 4.10 10^6/uL (4.70-6.10); White Blood Count 8.2 10^3/uL (4.0-11.0)
--- NOTE | 2025-05-25 10:08 | XR_ITS ---
The [address] [address] Patient Name: MELANIA GAINES MRN: [id number] date: 1955 Sex: M Assigned Patient Location: [facility] Current Patient Location: [facility] Accession/Order Number: [id number] Exam Date: 05/25/2025 10:00 Report Date: 05/25/2025 10:49 At the request of: NARGIS WHITE MD Procedure: XR chest 2V PA AND LATERAL CHEST: CLINICAL HISTORY: Preoperative clearance COMPARISON: None Median sternotomy wires are present. Granulomas changes are visualized on the left. There is no focal parenchymal consolidation, effusion or pneumothorax. The cardiac, hilar and mediastinal silhouettes are within normal limits. There is no vascular congestion. The visualized bony thorax is intact. There is slight levoscoliotic curvature and degenerative change at the spine. XR/XR chest 2V IMPRESSION: NO ACUTE CARDIOPULMONARY ABNORMALITY. Impression dictated by: Orin Ochoa M.D. 05/25/2025 10:49 AM Dictation Location: [place] [address] Electronically authenticated by: [id number] Y Date: 05/25/2025 10:49
[2025-05-25 10:27] LABS: Anion Gap 9.0; Blood Urea Nitrogen 17.0 mg/dL (7.0-18.0); Calcium 9.8 mg/dL (8.5-10.1); Carbon Dioxide 29.9 mmol/L (21.0-32.0); Chloride 104 mmol/L (98-107); Estimated GFR (African America >60 (>=60 mL/min/1.73m^2); Estimated GFR (Non-African Ame >60 (>=60 mL/min/1.73m^2); Potassium 3.9 mmol/L (3.5-5.1); Sodium 139 mmol/L (136-145)
[2025-05-25 10:33] LABS: Glucose 46 mg/dL (74-106)
== END 2025-05-25 08:56 | disposition home or self-care (01) ==
LOC: PST 09:01
PROVIDERS: Visit Provider Urology
DX: Z01.810 Encounter for preprocedural cardiovascular examination (principal); Z01.812 Encounter for preprocedural laboratory examination; N40.1 Benign prostatic hyperplasia with lower urinary tract symptoms
CPT/HCPCS: 36415; 71046; 80048; 85025; 85610; 85730

== ENCOUNTER 2025-06-03 09:43 | Day surgery (SDC) | payer MEDICARE, SELFPAY ==
[2025-05-25 09:39] VITALS: BP 154/82; PULSE 71; TEMP 36.6; O2SAT 98; BMI 19.6
[2025-06-03] VITALS (20 sets, daily range): BP systolic 124–165; BP diastolic 61–92; PULSE 65–117; TEMP 36.2–37.3; O2SAT 97–100; BMI 18.9
[2025-06-03] MEDS: LEVOFLOXACIN 500 MG/100 ML-D5W PREMIX 100 MG IV (12:08)
--- NOTE | 2025-06-03 13:48 | PM.URSON ---
Urology Surgery Operative Note Operative Note Procedure Date: 06/03/25 Time Out Performed: yes Pre-op Diagnosis: BPH and urinary retention Post-op Diagnosis: same as pre-op Procedures performed: 1. Cystoscopy. 2. Transurethral resection of the prostate. Anesthesia: GUILLEA Primary Surgeon: Armando Torres Complications: None Estimated blood loss (mL): 10 Findings: Obstructing lateral lobes Specimens: Prostate chips Drains: 22 Ghanaian three-way coud? Mcclain catheter taped to traction and CBI Indications for Procedures: This gentleman has BPH with LUTS refractory to medications. He had a UroCuff test which did show high intra vesical pressures he has gone into urinary retention. He has a Mcclain catheter. He is strongly desirous for a TURP. He understands that there is a possibility that despite getting this procedure done he may still not be able to evacuate his bladder completely. He has signed an informed consent after all the risks were explained to him. Some of these include bleeding, infection, anesthesia, retrograde ejaculation, urinary incontinence both temporary and permanent, erectile dysfunction, incomplete emptying ability of the bladder and possible need for further operations to name a few. Detailed description of Procedure: The patient was brought to the operating room and placed on the operating room table in the supine position. SCDs were placed on the lower extremities and turned on and functioning during the entire case. Timeout was done by all parties in the room. We all agreed upon the patient's identification and the planned procedures for this patient. Genn. anesthesia was then administered. The patient was then repositioned into the modified dorsal lithotomy position. All pressure points were satisfactorily padded. Genitalia were sterilely prepped and draped in usual fashion. I started by passing a 26 Ghanaian Olympus resectoscope with a standard bipolar loop electrode per urethra and into the bladder. The ureteral orifices were marked with a loop electrode. I started on the median lobe and uniformly resected this down to the bladder neck level. I then resected posteriorly from the bladder neck to the veru. The left lateral lobe was then taken down from the bladder neck to the veru. The right lateral lobe and the anterior tissue were then similarly resected. The apex was opened up carefully. The resection bed was coagulated. The [employer] evacuator was used to get all the chips out of the bladder and these were sent for permanent sections. Upon completion, with the scope at the apex, the prostatic urethra and bladder neck were now wide open. The resection bed showed no evidence of bleeding. There were no chips remaining in the bladder. The scope was then removed. I then placed a 22 Ghanaian three-way coud? Mcclain into the bladder. It was manually irrigated with a Facundo syringe to verify good placement. 30 cc of fluid was placed in the balloon. It was taped to traction and CBI was started. It irrigated to a clear color. The anesthetic was then reversed. He was then transferred [facility] and wheeled to PACU in stable condition. Urinary Catheter Management Urinary Catheter Management Urethral: Cath placed during this visit: no
[2025-06-03] MEDS: SOLIFENACIN SUCCINATE 10 MG TABLET PO (14:01)
[2025-06-03] MEDS: SODIUM CHLORIDE IRRIG SOLUTION 3,000 ML 3000 ML IRR ×10 (14:04→23:38)
[2025-06-03] MEDS: CEFAZOLIN SODIUM/DEXTROSE,ISO 1 GM/50 ML PREMIX IV ×2 (15:31→19:09)
[2025-06-03] MEDS: 0.9 % SODIUM CHLORIDE 1,000 ML 80 ML IV (15:32)
[2025-06-03] MEDS: INSULIN ASPART 300 UNIT/3 ML PEN SUBQ (17:05)
[2025-06-03] MEDS: INSULIN GLARGINE 300 UNIT/3 ML INSULN.PEN 35 UNIT SQ (21:51)
[2025-06-03] MEDS: TAMSULOSIN HCL 0.4 MG CAPSULE PO (21:51)
[2025-06-03] MEDS: HYDROCODONE/ACET 5-325 MG TABLET 1 TAB PO (22:33)
[2025-06-03] MEDS: TEMAZEPAM 15 MG CAPSULE PO (23:39)
[2025-06-04] MEDS: SODIUM CHLORIDE IRRIG SOLUTION 3,000 ML 3000 ML IRR ×2 (00:30→03:43)
[2025-06-04] MEDS: 0.9 % SODIUM CHLORIDE 1,000 ML 80 ML IV (03:43)
[2025-06-04 04:00] VITALS: BP 168/83; PULSE 79; TEMP 36.6; O2SAT 98
[2025-06-04 07:03] VITALS: BP 151/80; PULSE 80; TEMP 36.6; O2SAT 97
[2025-06-04] MEDS: HYDROCHLOROTHIAZIDE 25 MG TABLET 12.5 MG PO (08:57)
[2025-06-04] MEDS: SOLIFENACIN SUCCINATE 10 MG TABLET PO (08:57)
[2025-06-04] MEDS: METOPROLOL SUCCINATE 25 MG TAB.ER.24H PO (08:57)
[2025-06-04] MEDS: LOSARTAN POTASSIUM 50 MG TABLET 100 MG PO (08:57)
[2025-06-04] MEDS: GLIPIZIDE 10 MG TABLET PO (08:57)
[2025-06-04] MEDS: INSULIN GLARGINE 300 UNIT/3 ML INSULN.PEN 35 UNIT SQ (08:57)
[2025-06-04] MEDS: TAMSULOSIN HCL 0.4 MG CAPSULE PO (08:57)
== END 2025-06-04 13:00 | disposition home or self-care (01) ==
LOC: SURGOUT 09:44 → MS 06-04 14:08 → SURGOUT 06-06 12:30
PROVIDERS: Visit Provider Urology
PROC: (CPT 52601; principal; 2025-06-03 11:10)
DX: N40.1 Benign prostatic hyperplasia with lower urinary tract symptoms (principal); R33.9 Retention of urine, unspecified; I10 Essential (primary) hypertension; E11.9 Type 2 diabetes mellitus without complications; I25.10 Atherosclerotic heart disease of native coronary artery without angina pectoris; E78.5 Hyperlipidemia, unspecified; Z95.1 Presence of aortocoronary bypass graft; Z95.5 Presence of coronary angioplasty implant and graft; Z79.84 Long term (current) use of oral hypoglycemic drugs; Z87.891 Personal history of nicotine dependence; F31.9 Bipolar disorder, unspecified; F41.9 Anxiety disorder, unspecified
CPT/HCPCS: 52601; 36415; 88305; J0131; J0690; J1100; J2250; J2371; J2405; J2704; J3010